=== PATIENT | female | born 1960 | race Caucasian/White ===

== ENCOUNTER → 2020-01-18 14:29 | Outpatient (BNVA) | payer MEDICARE, BC, SELFPAY | PROVIDERS: Family Provider Nurse Practitioner Family; PCP Registered Nurse; Visit Provider Family Medicine | DX: R05 Cough (principal); J01.00 Acute maxillary sinusitis, unspecified | CPT/HCPCS: 87081; 87880 ==

== ENCOUNTER → 2020-03-11 11:27 | Outpatient (BNVA) | payer BC, SELFPAY | PROVIDERS: Family Provider Nurse Practitioner Family; PCP Registered Nurse; Visit Provider Registered Nurse | DX: Z12.31 Encounter for screening mammogram for malignant neoplasm of breast (principal); E11.9 Type 2 diabetes mellitus without complications; E78.5 Hyperlipidemia, unspecified; E55.9 Vitamin D deficiency, unspecified; R53.83 Other fatigue; E53.8 Deficiency of other specified B group vitamins | CPT/HCPCS: 80053; 80061; 82306; 82607; 83036; 84443; 85025 ==

== ENCOUNTER 2020-04-19 12:21 | Outpatient (CLI) | payer MEDICARE, SELFPAY ==
--- NOTE | 2020-04-19 12:45 | USCV_ITS ---
Nimisha Dipti Age: 59 Gender: F : 1960 Exam Date: 04/19/2020 12:39 Ordering Phys: Ania Simpson MD ([email or web address]) Technologist: Michelle Corral Exam Location: [facility] [place] Indication: shortness of breath BP: / HR: 74 Rhythm: Sinus Technical Quality: Adequate MEASUREMENTS (Male / Female) Normal Values 2D ECHO LV Diastolic Diameter PLAX 3.0 cm 4.2 - 5.9 / 3.9 - 5.3 cm LV Systolic Diameter PLAX 1.9 cm LV Chamber Size 3.2 cm IVS Diastolic Thickness 1.4 cm 0.6 - 1.0 / 0.6 - 0.9 cm IVS Systolic Thickness 1.4 cm LVPW Diastolic Thickness 1.4 cm 0.6 - 1.0 / 0.6 - 0.9 cm LVPW Systolic Thickness 1.8 cm RV Chamber Size 3.2 cm LVOT Diameter 2.0 cm LV Ejection Fraction 2D Teich 69.7 % LV Ejection Fraction MOD 2C 42.0 % LV Ejection Fraction 2C AL 42.4 % LA Diameter 3.8 cm LA Width 3.7 cm LA Height 4.5 cm RA Width 3.1 cm RA Height 3.9 cm Aorta at Sinotubular Diameter 2.1 cm M-MODE LV Diastolic Diameter MM 4.6 cm 4.2 - 5.9 / 3.9 - 5.3 cm LV Systolic Diameter MM 2.6 cm LV Ejection Fraction MM Teich 74.6 % IVS Diastolic Thickness MM 1.0 cm 0.6 - 1.0 / 0.6 - 0.9 cm IVS Systolic Thickness MM 1.4 cm LVPW Diastolic Thickness MM 1.0 cm 0.6 - 1.0 / 0.6 - 0.9 cm LVPW Systolic Thickness MM 1.7 cm RV Diastolic Diameter MM 2.2 cm Aortic Annulus Diameter 3.2 cm LA Ao Ratio MM 1.2 MV E Point Septal Separation 0.5 cm DOPPLER AV Peak Velocity 102.0 cm/s LVOT Peak Velocity 58.0 cm/s AV Area Cont Eq vti 2.1 cm squared AV Area Cont Eq pk 1.9 cm squared MV Area PHT 4.2 cm squared Mitral E to A Ratio 1.1 MV E' Velocity 10.0 cm/s Mitral E to MV E' Ratio 8.8 Mitral E to LV E' Lateral Ratio 7.5 Mitral E to LV E' Septal Ratio 10.5 TR Peak Velocity 181.4 cm/s TR Peak Gradient 13.2 mmHg TR Mean Velocity 130.9 cm/s TR Mean Gradient 7.6 mmHg TR Velocity Time Integral 39.8 cm TV Peak E Velocity 63.0 cm/s Right Atrial Pressure 3.0 mmHg Pulmonary Artery Systolic Pressu 16.2 mmHg PV Peak Velocity 67.0 cm/s RV Acceleration Time 0.3 s RV Ejection Time 0.4 s RV AcT/ET 0.7 FINDINGS Left Ventricle Possibly normal LV size and ejection fraction. The basal inferior wall segment appears to be hypokinetic segmental wall motion analysis difficult because of poor ultrasonic window. Right Ventricle Possibly of normal size and ejection fraction Right Atrium Possibly of normal size Left Atrium Possibly of normal size Mitral Valve Minimally thickened Aortic Valve Could not visualized well Tricuspid Valve Could not be visualized well Pulmonic Valve Pulmonic valve not well visualized. Pericardium No pericardial effusion. Aorta Normal aortic annulus size. CONCLUSIONS Possibly normal LV size ejection fraction of around 55%. Motion normality as mentioned above. Segmental wall motion analysis difficult because of the poor ultrasonic window Mitral valve appears to be minimally thickened No pericardial effusion Possibly normal chamber sizes Technically difficult study. Dr Ania Simpson MD [facility] (Electronically Signed) Final Date: 19 April 2020 15:18 S
== END 2020-04-19 12:22 | disposition home or self-care (01) ==
LOC: US 12:27
PROVIDERS: PCP Registered Nurse; Visit Provider Registered Nurse
DX: R06.02 Shortness of breath (principal)
CPT/HCPCS: 93306

== ENCOUNTER 2020-05-08 12:05 | Emergency (ER) | payer MEDICARE, SELFPAY ==
[2020-05-08 12:13] VITALS: BMI 44.9
[2020-05-08 12:18] VITALS: BP 156/94; PULSE 89; RESP 16; TEMP 36.7; O2SAT 94
--- NOTE | 2020-05-08 12:26 | ED_ITS ---
HPI - General Adult General: Chief complaint: General Medical Stated complaint: covid s/s Time Seen by Provider: 05/08/20 12:14 Source: patient Mode of arrival: ambulatory Limitations: no limitations History of Present Illness: HPI narrative: Dipti is a nice 59-year-old female who comes in complaining of sore throat, cough and congestion. She has had her symptoms for approximately 1 week. She has had 2 exposures to the COVID-19 virus. Patient denies any chest pain, generalized weakness, abdominal pain or back pain. She is continued complaint of cough, sore throat and occasional shortness of breath. Associated symptoms: Reports dyspnea; Deny chest pain, headache(s), nausea, rash, palpitations, syncope or vomiting Review of Systems Const: Denies: fever(s) Eyes: Denies: change in vision ENMT: Reports: throat pain Card: Denies: chest pain, palpitations, syncope, pre-syncope or dyspnea on exertion Resp: Reports: dyspnea and non-productive cough; Denies: productive cough GI: Denies: abdominal pain, nausea, vomiting or diarrhea : Denies: flank pain, dysuria, urinary frequency or urinary urgency Musc: Denies: neck pain, back pain or extremity pain Skin/Breast: Denies: rash or pruritus Neuro: Denies: headache(s), numbness in extremities, weakness in extremities or dizziness Sung/Lymph: Denies: easy bruising or easy bleeding All/Imm: Denies: urticaria PFSH ED PFSH: Medical History Chest pain Diabetes Fibromyalgia Social History Smoking and tobacco status: never smoked Alcohol intake: never Adopted: No Caregiver/support person: No Lives independently: Yes Marital status: / Current occupational status: employed Current gender identity: Female Physical Exam Const: COMMON NORMALS: no acute distress, patient oriented x3, no limitations, healthy appearing and well nourished GENERAL APPEARANCE: cooperative, well kempt and well developed HENMT: COMMON NORMALS: normocephalic, atraumatic, external ears normal, EAC's normal and Normal external nose present HEAD & SCALP: normal to inspection, normocephalic and atraumatic FACE & SINUS: normal facial exam and face symmetric NOSE: Normal external nose present and Normal nares present EXTERNAL EAR: Yes external ears normal EXTERNAL AUDITORY CANAL: EAC's normal MOUTH: Normal oral and palatal mucosa present, lip normal and tongue normal Eye: COMMON NORMALS: Equal, round and reactive pupils present and conjunctivae normal GENERAL EYE: appearance normal, both eyes and all related structures ALIGNMENT: Yes alignment normal PERIORBITAL: periorbital findings normal EYELID: eyelids normal CONJUNCTIVA: Yes conjunctivae normal SCLERA: sclerae normal PUPIL: Yes Equal, round and reactive pupils present Neck/C-Spine: COMMON NORMALS: full ROM, no lymphadenopathy, supple, no meningeal signs and no JVD GENERAL: Yes normal visual inspection and Yes trac hea midline Chest: COMMONS NORMALS: normal inspection of the chest and normal palpation of entire chest wall Resp: COMMON NORMALS: normal respiratory effort, No retractions and No use of accessory muscles EFFORT & INSPECTION: Yes able to speak in complete sentences and Yes symmetric chest movement AUSCULTATION: no crackles, no rales, no rhonchi and no wheezes Cardio: COMMON NORMALS: no JVD, regular rate, regular rhythm, S1 normal heart sound present and S2 normal heart sound present RATE: regular rate RHYTHM: regular rhythm HEART SOUNDS: S1 normal heart sound present, S2 normal heart sound present, no click, no gallops, no murmurs, no rubs and abnormal split S2 GI: COMMON NORMALS: Soft to palpation and No hepatosplenomegaly present PALPATION: Yes Soft to palpation, No Tenderness to palpation present (GI), No Guarding due to palpation present (GI), No Rigid due to palpation, Yes No hepatosplenomegaly present, No Hernia present, No Palpable mass present and No Pulsatile mass present : COMMON NORMALS: Yes no CVA tenderness BLADDER/KIDNEY EXAM: Yes no CVA tenderness EXTERNAL FEMALE EXAM: No Hernia present Back/Pelvis: COMMON NORMALS: no CVA tenderness, thoracic and lumbar spine normal to inspection, no thoracic nor lumbar tenderness and thoraco-lumbar ROM normal Extremity: COMMON NORMALS: normal to inspection, full ROM, capillary refill normal, no joint enlargement, no clubbing, cyanosis or edema and no calf tenderness Neuro: COMMON NORMALS: patient oriented x3, CN's II-XII intact bilaterally, moves all extremities, no focal motor deficits and no sensory deficits noted MENINGEAL SIGNS: Yes no meningeal signs SPEECH: speech normal Psych: COMMON NORMALS: mental status grossly normal, Normal thought process present, cooperative, normal affect, speech normal and activity/motor behavior normal APPEARANCE: Yes well kempt SPEECH: Yes normal speech THOUGHT PROCESS: Normal thought process present Skin: COMMON NORMALS: no rashes or lesions noted, turgor normal, no jaundice, no petechiae and no mottling GENERAL SKIN EXAM: no rashes or lesions noted and turgor normal Course Vital Signs: Vital signs: Vital Signs Temperature 98.0 F 05/08/20 12:18 Pulse Rate 72 05/08/20 15:47 Respiratory Rate 18 05/08/20 15:47 Blood Pressure 133/74 05/08/20 15:47 Pulse Oximetry 96 05/08/20 15:47 MDM - General Adult MDM Narrative: Medical decision making narrative: Patient's chest x-ray is clear. A COVID-19 test has been sent. The patient agrees to return if she is worse and at this time she wants to go home with something for bronchitis. I will start her on Tessalon Perles and Augmentin. She will return if there is any problems but at this time she is feeling better and would like to be discharged. She agrees to self quarantine herself for the COVID-19 exposure until we call her with her results. Lab Data: Labs: Lab Results 05/08/20 05/08/20 05/08/20 Range/Units 13:20 13:20 14:45 WBC 9.8 (4.0-10.0) 10^3/ uL RBC 5.20 (4.1-5.3) 10^6/u L Hgb 15.8 H (11.5-15.3) g/dL Hct 48.8 H (37.0-47.0) % MCV 93.8 (81-99) fL MCH 30.4 (28.0-34.0) pg MCHC 32.4 (30.0-36.0) g/dL RDW 13.7 (12.1-15.1) % Plt Count 324 (130-400) 10^3/c mm MPV 9.2 (7.4-10.4) fL Neut % (Auto) 60.4 % Lymph % (Auto) 26.6 % [place] % (Auto) 9.8 % Eos % (Auto) 2.2 % Baso % (Auto) 0.6 % Neut # (Auto) 5.9 (1.8-7.7) 10^3/u L Lymph # (Auto) 2.6 (0.8-4.8) 10^3/u L [place] # (Auto) 1.0 H (0.2-0.9) 10^3/u L Eos # (Auto) 0.2 (0.0-0.8) 10^3/u L Baso # (Auto) 0.1 (0.0-0.1) 10^3/u L Nucleated RBC % (a uto) 0 % Nucleated RBCs # 0.0 /100WBC Sodium 139 (136-145) mmol/L Potassium 4.1 (3.5-5.1) mmol/L Chloride 102 (98-107) mmol/L Carbon Dioxide 29 (22-29) mmol/L Anion Gap 12.1 (5-19) BUN 11 (6-20) mg/dL Creatinine 0.7 (0.5-0.9) mg/dL GFR Calculation 86.2 L (90-130) mL/min Glucose 108 (65-115) mg/dL Calculated Osmolal ity 285 (285-295) mOsm/k g Calcium 10.0 (8.5-10.5) mg/dL Total Bilirubin 0.3 (0.15-1.2) mg/dL AST 24 (0-32) U/L ALT 23 (0-33) U/L Alkaline Phosphata se 106 H (35-105) IU/L Total Protein 7.4 (6.6-8.7) g/dL Albumin 4.1 (3.5-5.2) g/dL Globulin 3.3 (1.3-4.6) g/dL Urine Color Yellow (Yellow) Urine Appearance Sl hazy (CLEAR) Urine pH 7 (5-7) Ur Specific Gravit y 1.020 (1.005-1.030) Urine Protein Neg (Negative) Urine Glucose (UA) Norm (Normal) Urine Ketones Negative (Negative) Urine Blood Neg (Negative) Urine Nitrate Negative (Negative) Urine Bilirubin Neg (NEGATIVE) Urine Urobilinogen Norm (Negative) mg/dL Ur Leukocyte Kelsie ase Negative (Negative) Urine RBC None (0-2) /hpf Urine WBC 0-4 H (0-5) /hpf Ur Squamous Epith Cells 10-15 H (0-5) Amorphous Sediment 2+ Urine Bacteria Trace (NONE) Urine Mucus 2+ Imaging Data^: CXR: My impression: No acute cardiopulmonary findings, unchanged from previous. Discharge Plan Discharge Patient Disposition: Home, Self-Care Clinical Impression: Bronchitis Condition: Stable Prescriptions: New Augmentin 875-125 mg tablet 1 tab PO BID 10 Days Qty: 20 RF: 0 Tessalon Perles 100 mg capsule 200 mg PO TID PRN (Reason: cough) Qty: 60 RF: 0 No Action ibuprofen 200 mg tablet 600 mg PO BID PRNRF: 0 fluticasone propionate 50 mcg/actuation spray,suspension 2 spray INTRANASAL DAILY PRNRF: 0 cholecalciferol (vitamin D3) 1,250 mcg (50,000 unit) tablet 1,250 mcg PO .once a week 90 Days Qty: 12 RF: 1 metformin 500 mg tablet 500 mg PO BID 90 Days Qty: 180 RF: 0 Discharge Orders: Discharge Order (Routine); Ordered 05/08/20 Ordered By: Sofía Jordan Referrals: Lew Camilo FNP [Primary Care Provider] - 1-3 days Discharge Diet: Advance as tolerated Discharge Activity: Limit activity as instructed Patient Instructions: Acute Bronchitis (ED) Activity Restrictions/Additional Instructions: Please return to the ER immediately for any of the signs or symptoms listed on your discharge instruction sheets, worsening/changing of your symptoms, you are not getting better as quickly as expected, or for ANY other cause or concerns. Keep yourself at home and quarantined away from everyone else into you were called with your COVID-19 test results. If your breathing worsens, your sore throat worsens, or you have any other concerns please return to the ER immediately for recheck. Be certain to follow-up with your doctor this week for recheck. Discharge Date/Time: 05/08/20 15:58 Coding Level of Care Code ED Linux Developer for Callie Fwd Exam Comprehensive
--- NOTE | 2020-05-08 12:36 | XRR_ITS ---
PROCEDURE INFORMATION: Exam: XR Chest, 1 View Exam date and time: 05/08/2020 12:38 PM Age: 59 years old Clinical indication: Cough; Patient HX: Possible covid TECHNIQUE: Imaging protocol: XR of the chest Views: 1 view. COMPARISON: No relevant prior studies available. FINDINGS: Lungs: Nonspecific right and left cardiophrenic angle densities more pronounced on the right. Possible fat pads. Some right middle lobe atelectasis not excluded. Pleural space: Unremarkable. No pleural effusion. No pneumothorax. Heart/Mediastinum: Unremarkable. No cardiomegaly. Bones/joints: Unremarkable. XR/XR chest 1V portable [id number] IMPRESSION: Nonspecific right and left cardiophrenic angle densities more pronounced on the right. Possible fat pads. Some right middle lobe atelectasis not excluded.
[2020-05-08 13:28] LABS: Basophils # 0.1 10^3/uL (0.0-0.1); Basophils % 0.6 %; Eosinophils # 0.2 10^3/uL (0.0-0.8); Eosinophils % 2.2 %; Hematocrit 48.8 % (37.0-47.0); Hemoglobin 15.8 g/dL (11.5-15.3); Lymphocytes # 2.6 10^3/uL (0.8-4.8); Lymphocytes % 26.6 %; Mean Corpuscular HGB Conc 32.4 g/dL (30.0-36.0); Mean Corpuscular Hemoglobin 30.4 pg (28.0-34.0); Mean Corpuscular Volume 93.8 fL (81-99); Mean Platelet Volume 9.2 fL (7.4-10.4); Monocytes % 9.8 %; Neutrophils # 5.9 10^3/uL (1.8-7.7); Neutrophils % 60.4 %; Nucleated Red Blood Cells % 0 %; Platelet Count 324 10^3/cmm (130-400); Red Cell Distribution Width 13.7 % (12.1-15.1); White Blood Count 9.8 10^3/uL (4.0-10.0)
[2020-05-08 13:52] LABS: Alanine Aminotransferase 23 U/L (0-33); Albumin Level 4.1 g/dL (3.5-5.2); Alkaline Phosphatase 106 IU/L (35-105); Anion Gap 12.1 (5-19); Aspartate Amino Transferase 24 U/L (0-32); Blood Urea Nitrogen 11 mg/dL (6-20); Carbon Dioxide 29 mmol/L (22-29); Chloride 102 mmol/L (98-107); Globulin 3.3 g/dL (1.3-4.6); Glomerular Filtration Rate 86.2 mL/min (90-130); Glucose 108 mg/dL (65-115); Osmolality Calculated 285 mOsm/kg (285-295); Potassium 4.1 mmol/L (3.5-5.1); Sodium 139 mmol/L (136-145); Total Bilirubin 0.3 mg/dL (0.15-1.2); Total Protein 7.4 g/dL (6.6-8.7)
[2020-05-08] MEDS: sodium chloride 0.9% 1,000 ML 999 ML IV (14:00)
[2020-05-08] MEDS: dexamethasone 10 mg/mL INJ IVP (14:28)
[2020-05-08] MEDS: amoxicillin-clav 875-125 mg Tablet 1 TAB PO (14:29)
[2020-05-08] MEDS: benzonatate 100 mg Capsule 200 MG PO (14:29)
[2020-05-08 15:47] VITALS: BP 133/74; PULSE 72; RESP 18; O2SAT 96
[2020-05-08 15:48] LABS: Bilirubin Urine Neg (NEGATIVE); Blood Urine Neg (Negative); Glucose Urine UA Norm (Normal); Ketones Urine Negative (Negative); Leukocyte Esterase Urine Negative (Negative); Nitrate Urine Negative (Negative); Protein Urine Neg (Negative); Urine Appearance SL Hazy (CLEAR); Urine Color Yellow (Yellow); Urobilinogen Urine Norm (Negative); pH Urine 7 (5-7)
[2020-05-08 16:06] LABS: Add Urine Culture? No; Amorphous Sediment Urine 2+; Bacteria Urine TRACE; Mucus Urine 2+; WBC Urine 0-4 /hpf (0-5)
[2020-05-10 23:55] LABS: Quest SARS-CoV-2 RNA NOT DETECTED (NOT DETECTED)
== END 2020-05-08 15:58 | disposition home or self-care (01) ==
PROVIDERS: Emergency Provider Emergency Medicine; PCP Registered Nurse
DX: J40 Bronchitis, not specified as acute or chronic (principal); E11.9 Type 2 diabetes mellitus without complications
CPT/HCPCS: 12345; 36415; 71045; 80053; 81001; 85025; 87040; 87635; 96361; 96374; 96375; 99282; 99284; J1100; J7030

== ENCOUNTER → 2020-05-21 10:39 | Outpatient (BNVA) | payer MEDICARE, SELFPAY | PROVIDERS: PCP Registered Nurse; Visit Provider Nurse Practitioner Family | DX: N94.9 Unspecified condition associated with female genital organs and menstrual cycle (principal); N76.0 Acute vaginitis; B96.89 Other specified bacterial agents as the cause of diseases classified elsewhere | CPT/HCPCS: 81000 ==

== ENCOUNTER → 2020-08-27 12:04 | Outpatient (BNVA) | payer MEDICARE, SELFPAY | PROVIDERS: PCP Registered Nurse; Visit Provider Registered Nurse | DX: Z11.59 Encounter for screening for other viral diseases (principal); Z20.828 Contact with and (suspected) exposure to other viral communicable diseases; R05 Cough | CPT/HCPCS: 87635 ==

== ENCOUNTER 2020-11-03 12:44 | Outpatient (CLI) | payer MEDICARE, SELFPAY ==
--- NOTE | 2020-11-03 12:55 | XR_ITS ---
WS: [id number] Exam: XR lumbar spine 2-3V* [id number] Date/Time of Exam: 11/03/2020 12:55 PM Reason For Exam: M54.9 - Dorsalgia, unspecified Lateral views of the lumbar spine show no obvious fracture or dislocation. Disc spaces are preserved. Facet DJD noted at all levels. Abdominal calcification noted which apparently represents a staghorn calculus in the left kidney which has been previously described. XR/XR lumbar spine 2-3V* [id number] IMPRESSION: 1. Facet DJD at all levels. No fracture or malalignment identified from the lat eral view. 2. Staghorn renal calculus.
--- NOTE | 2020-11-03 12:55 | XR_ITS ---
WS: [id number] Exam: XR hip RT 2-3V wo/w pel* [id number] Date/Time of Exam: 11/03/2020 12:55 PM Reason For Exam: M25.551 - Pain in right hip Comparison 05/09/2011. Moderate degenerative narrowing of the joint compartment. No fracture or dislocation. Normal soft tis sues. XR/XR hip RT 2-3V wo/w pel* [id number] IMPRESSION: 1. Moderately advanced DJD which has been progressive since previous exam. 2. No fracture noted.
== END 2020-11-03 12:45 | disposition home or self-care (01) ==
PROVIDERS: PCP Nurse Practitioner Family; Visit Provider Nurse Practitioner Family
DX: M47.816 Spondylosis without myelopathy or radiculopathy, lumbar region (principal); N20.0 Calculus of kidney; M16.11 Unilateral primary osteoarthritis, right hip
CPT/HCPCS: 72100; 73502

== ENCOUNTER → 2020-12-02 08:49 | Outpatient (BNVA) | payer MEDICARE, SELFPAY | PROVIDERS: PCP Nurse Practitioner Family; Visit Provider Nurse Practitioner Family | DX: S39.012A Strain of muscle, fascia and tendon of lower back, initial encounter (principal); M62.830 Muscle spasm of back; X58.XXXA Exposure to other specified factors, initial encounter | CPT/HCPCS: 81000 ==

== ENCOUNTER 2021-04-07 15:11 | Outpatient (CLI) | payer MEDICARE, SELFPAY ==
--- NOTE | 2021-04-07 15:26 | XR_ITS ---
WS: [id number] Left knee, 3 views, 04/07/2021 Clinical Data: M25.562 - Pain in left knee Comparison: None. Findings: No fractures or dislocations are seen. There is minimal narrowing of both the medial and lateral join t compartments. There is a small spur of the posterior superior patella. The soft tissues are unrema rkable. XR/XR knee LT 3V* [id number] Impression: Minimal medial and lateral joint compartment narrowing. Kellgren-Bonifacio Classification: grade 1 (doubtful): doubtful joint space narr owing and possible osteophytic lipping
--- NOTE | 2021-04-07 15:26 | XR_ITS ---
WS: [id number] Left leg including the tibia and fibula, AP and lateral views, 04/07/2021 Clinical Data: M79.605 - Pain in left leg Comparison: None. Findings: No fractures or dislocations are seen. The tibia and fibula are intact. The soft tissues are normal. XR/XR tibia fibula LT 2V [id number] Impression: Negative left leg.
== END 2021-04-07 15:12 | disposition home or self-care (01) ==
LOC: RAD 15:22
PROVIDERS: PCP Nurse Practitioner Family; Visit Provider Nurse Practitioner Family
DX: M25.562 Pain in left knee (principal); M79.605 Pain in left leg
CPT/HCPCS: 73562; 73590

== ENCOUNTER → 2021-04-14 10:33 | Outpatient (BNVA) | payer MEDICARE, SELFPAY | PROVIDERS: PCP Nurse Practitioner Family; Visit Provider Nurse Practitioner Family | DX: L91.8 Other hypertrophic disorders of the skin (principal) | CPT/HCPCS: 88304 ==

== ENCOUNTER 2021-05-03 17:06 | Outpatient (CLI) | payer MEDICARE, SELFPAY ==
--- NOTE | 2021-05-03 17:30 | MR_ITS ---
WS: [id number] MRI LEFT KNEE NONCONTRAST TECHNIQUE: Axial PD, coronal PD fat sat, coronal PD, sagittal PD, and sagittal PD fat-sat images obta ined. CLINICAL INFORMATION: M25.562 - Pain in left knee COMPARISON: None. FINDINGS: Distal quadriceps and patella tendons are intact. Normal ACL and PCL. Hypertrophic patella. No signif icant joint effusion. Small amount prepatellar and infrapatellar soft tissue edema. Moderate to advanced chronic thinning of the medial and lateral meniscus. No acute appearing meniscal tears. Moderate joint space narrowing with moderate to advanced chondromalacia involving the medial and lateral joint compartments. Hypertrophic changes along the joint line.Small amount of subchondral edema involving the medial femoral condyle. Moderate chondromalacia patella. No subchondral edema. Medial and lateral patellar retinacula appear intact. Normal popliteal fossa. Medial and lateral collateral ligaments are intact. MR/MR knee LT wo con* [id number] IMPRESSION: 1. Normal anterior and posterior cruciate ligaments. 2. No acute patellar fractures. Small amount prepatellar and infrapatellar sof t tissue edema. No significant joint effusion. 3. No acute appearing meniscal tears. Chronic thinning of the medial and later al meniscus with moderate to advanced chondromalacia. 4. Medial and lateral collateral ligaments are intact. 5. Small amount of subchondral edema involving the medial femoral condyle. 6. Moderate chondromalacia patella. No subchondral edema. Outbridge grading: grade III: partial-thickness cartilage loss with focal ulcer ation
== END 2021-05-03 17:07 | disposition home or self-care (01) ==
PROVIDERS: PCP Nurse Practitioner Family; Visit Provider Nurse Practitioner Family
DX: M25.562 Pain in left knee (principal); M22.42 Chondromalacia patellae, left knee; R60.0 Localized edema
CPT/HCPCS: 73721

== ENCOUNTER → 2021-07-15 10:16 | Outpatient (BNVA) | payer MEDICARE, SELFPAY | PROVIDERS: PCP Nurse Practitioner Family; Visit Provider Nurse Practitioner Family | DX: Z20.822 Contact with and (suspected) exposure to COVID-19 (principal); R05 Cough | CPT/HCPCS: 87635 ==

== ENCOUNTER 2021-07-19 13:30 | Outpatient (CLI) | payer MEDICARE, SELFPAY ==
[2021-07-19 14:03] VITALS: BP 129/86; PULSE 94; RESP 20; TEMP 36.5; O2SAT 94; BMI 44.9
[2021-07-19 14:34] VITALS: BP 128/80; PULSE 77; RESP 18; O2SAT 97
[2021-07-19 15:21] VITALS: BP 127/70; PULSE 71; RESP 16; TEMP 36.5; O2SAT 98
== END 2021-07-19 15:23 | disposition home or self-care (01) ==
LOC: OPS 13:32
PROVIDERS: PCP Nurse Practitioner Family; Visit Provider Nurse Practitioner Family
DX: U07.1 COVID-19 (principal)
CPT/HCPCS: 96365

== ENCOUNTER → 2021-09-13 09:48 | Outpatient (BNVA) | payer MEDICARE, SELFPAY | PROVIDERS: PCP Nurse Practitioner Family; Visit Provider Nurse Practitioner Family | DX: E55.9 Vitamin D deficiency, unspecified (principal) | CPT/HCPCS: 82306 ==

== ENCOUNTER → 2021-12-22 14:38 | Outpatient (BNVA) | payer MEDICARE, SELFPAY | PROVIDERS: PCP Nurse Practitioner Family; Visit Provider Nurse Practitioner Family | DX: L03.90 Cellulitis, unspecified (principal); L02.214 Cutaneous abscess of groin | CPT/HCPCS: 87070; 87077; 87184 ==

== ENCOUNTER 2022-12-19 11:05 | Inpatient (IN) | payer MEDICARE, SELFPAY ==
[2022-12-19] VITALS (54 sets, daily range): BP systolic 113–152; BP diastolic 68–92; PULSE 72–102; RESP 12–18; TEMP 36.4–36.9; O2SAT 86–99; BMI 35.6
--- NOTE | 2022-12-19 11:23 | ED_ITS ---
HPI - Female Genitourinary General: Chief complaint: Urogenital-Female Stated complaint: possible urogenital Time Seen by Provider: 12/19/22 11:23 History of Present Illness: This is a duplicate chart. I did not see this patient. Patient was seen by another ER physician PFS ED PFSH: Medical History Chest pain Diabetes Fibromyalgia Renal artery pseudoaneurysm Staghorn renal calculus Surgical History H/O: hysterectomy History of kidney surgery Hx of cholecystectomy Family History Other Diabetes Social History Smoking and tobacco status: never smoked Alcohol intake: never Adopted: No Caregiver/support person: No Lives independently: Yes Marital status: / Current occupational status: employed Current gender identity: Female Course Vital Signs: Vital signs: Vital Signs Temperature 99.1 F 12/21/22 20:00 Pulse Rate 82 12/21/22 20:00 Respiratory Rate 18 12/21/22 20:00 Blood Pressure 135/77 12/21/22 20:00 Pulse Oximetry 94 12/21/22 20:00 Oxygen Delivery Me thod 12/21/22 20:00 Oxygen Flow Rate 2 12/19/22 21:23 MDM - Female Medical Decision Making This is a duplicate chart. I did not see this patient. Patient was seen by another ER physician Lab Data 12/21/22 04:50 12/21/22 04:50 Radiology Impressions Chest X-Ray 12/19/22 12:12 IMPRESSION: Evidence of active cardiopulmonary disease. Abdomen/Pelvis CT 12/19/22 13:08 IMPRESSION: 1. Moderate amount of free intraperitoneal air. 2. Segment of acute sigmoid diverticulitis without abscess. There are small adjacent foci of free air. This is probably the site of the perforation. 3. There is additional free air closely associated with the antrum of the stomach. No wall thickening. Suspect this is incidental and the free air is related to the sigmoid perforation. 4. Prior cholecystectomy. Notified Ramónshannon Key MD at 12/19/2022 2:24 PM. Laboratory Results WBC 16.2 10^3/uL (4.0-10.0) H 12/19/22 11:54 RBC 5.32 10^6/uL (4.1-5.3) H 12/19/22 11:54 Hgb 16.3 g/dL (11.5-15.3) H 12/19/22 11:54 Hct 49.2 % (37.0-47.0) H 12/19/22 11:54 MCV 92.5 fl (81-99) 12/19/22 11:54 MCH 30.6 pg (28.0-34.0) 12/19/22 11:54 MCHC 33.1 g/dL (30.0-36.0) 12/19/22 11:54 RDW 13.7 % (12.1-15.1) 12/19/22 11:54 Plt Count 300 10^3/cmm (130-400) 12/19/22 11:54 MPV 9.7 fL (7.4-10.4) 12/19/22 11:54 Neut % (Auto) 81.7 % 12/19/22 11:54 Lymph % (Auto) 12.6 % 12/19/22 11:54 [place] % (Auto) 5.1 % 12/19/22 11:54 Eos % (Auto) 0.2 % 12/19/22 11:54 Baso % (Auto) 0.2 % 12/19/22 11:54 Neut # (Auto) 13.17 10^3/uL (1.8-7.7) H 12/19/22 11:54 Lymph # (Auto) 2.0 10^3/uL (0.8-4.8) 12/19/22 11:54 [place] # (Auto) 0.8 10^3/uL (0.2-0.9) 12/19/22 11:54 Eos # (Auto) 0.0 10^3/uL (0.0-0.8) 12/19/22 11:54 Baso # (Auto) 0.0 10^3/uL (0.0-0.1) 12/19/22 11:54 Nucleated RBC % (auto) 0 % 12/19/22 11:54 Nucleated RBCs # 0.0 /100WBC 12/19/22 11:54 D-Dimer 0.51 ug/mIFEU (0-0.59) 12/19/22 11:54 Specimen Type Arterial 12/19/22 14:14 Sample Site Radial, right 12/19/22 14:14 ABG pH 7.50 (7.35-7.45) H 12/19/22 14:14 ABG pCO2 29.7 mmHg (35-45) L 12/19/22 14:14 ABG pO2 82.8 mmHg (80.0-100.0) 12/19/22 14:14 ABG HCO3 23.3 mmol/L (22-26) 12/19/22 14:14 ABG O2 Saturation 97.4 12/19/22 14:14 ABG Base Excess 1.3 mmol/L (-2.0-2.0) 12/19/22 14:14 Jonathan Test Pos 12/19/22 14:14 A-a O2 Gradient 3.5 mmHg (5-10) L 12/19/22 14:14 Hematocrit 49.8 % (37-47) H 12/19/22 14:14 Hgb O2 Saturation 96.3 % (95-100) 12/19/22 14:14 Carboxyhemoglobin 0.8 %THgb (0.4-20.1) 12/19/22 14:14 Methemoglobin 0.4 % (0.4-1.5) 12/19/22 14:14 Total Hemoglobin 16.3 g/dL (12-16) H 12/19/22 14:14 Sodium 137.0 mmol/L (131-143) 12/19/22 14:14 Potassium 3.9 mmol/L (3.5-5.0) 12/19/22 14:14 Glucose 141.0 mg/dL (70-115) H 12/19/22 14:14 Ionized Calcium 1.2 mmol/L (1.1-1.4) 12/19/22 14:14 O2 Delivery Device Room air 12/19/22 14:14 FiO2 21.0 % 12/19/22 14:14 Vibration Technician ID glc 12/19/22 14:14 Sodium 135 mmol/L (136-145) L 12/19/22 11:54 Potassium 4.1 mmol/L (3.5-5.1) 12/19/22 11:54 Chloride 99 mmol/L (98-107) 12/19/22 11:54 Carbon Dioxide 23 mmol/L (22-29) 12/19/22 11:54 Anion Gap 17.1 (5-19) 12/19/22 11:54 BUN 12 mg/dL (8-23) 12/19/22 11:54 Creatinine 0.6 mg/dL (0.5-0.9) 12/19/22 11:54 GFR Calculation 102.0 mL/min (90-130) 12/19/22 11:54 Glucose 158 mg/dL (65-115) H 12/19/22 11:54 Calculated Osmolality 283 mOsm/kg (285-295) L 12/19/22 11:54 Lactic Acid 1.1 mmol/L (0.5-2.2) 12/19/22 01:18 Calcium 9.5 mg/dL (8.5-10.5) 12/19/22 11:54 Urine Color Yellow (Yellow) 12/19/22 11:08 Urine Appearance Clear (CLEAR) 12/19/22 11:08 Urine pH 7 (5-7) 12/19/22 11:08 Ur Specific [place] 1.010 (1.005-1.030) 12/19/22 11:08 Urine Protein Neg (Negative) 12/19/22 11:08 Urine Glucose (UA) Norm (Normal) 12/19/22 11:08 Urine Ketones 1+ (Negative) H 12/19/22 11:08 Urine Blood Neg (Negative) 12/19/22 11:08 Urine Nitrate Negative (Negative) 12/19/22 11:08 Urine Bilirubin Neg (Negative) 12/19/22 11:08 Urine Urobilinogen Norm mg/dL (Negative) 12/19/22 11:08 Ur Leukocyte Esterase Negative (Negative) 12/19/22 11:08 Urine RBC 0-4 /hpf (0-2) H 12/19/22 11:08 Urine WBC 0-4 /hpf (0-5) H 12/19/22 11:08 Ur Squamous Epith Cells 0-4 /hpf (0-5) H 12/19/22 11:08 Amorphous Sediment Trace /hpf 12/19/22 11:08 Urine Bacteria 2+ /hpf (NONE) H 12/19/22 11:08 Urine Mucus Trace /hpf 12/19/22 11:08 Discharge Plan Discharge Patient Disposition: Admitted As Inpatient Admit Provider: Willian Berg Clinical Impression: Perforated sigmoid colon Diverticulitis large intestine Qualifiers: Diverticulitis bleeding: unspecified bleeding status Diverticulitis complic ation: with perforation Qualified Code(s): K57.20 - Diverticulitis of large intestine with perforation and abscess without bleeding Condition: Stable Coding Level of Care Code ED Plastics Fabrication Supervisor for Callie Moraes
--- NOTE | 2022-12-19 11:43 | W.ED.ABDPA2 ---
HPI - Abdominal Pain General: Chief Complaint: Urogenital-Female Stated Complaint: possible urogenital Time Seen by Provider: 12/19/22 11:23 Source: patient Mode of arrival: ambulatory Limitations: no limitations History of Present Illness: See nursing assessment. Patient states she has left lower quadrant abdominal pain that started yesterday after she waited a long time to urinate. She states she has some spasms in her suprapubic area and left lower quadrant. She denies any dysuria or hematuria. She denies any fever. She denies any nausea or vomiting. She denies any shortness of breath or chest pain. No cough. No flank pain. 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 She states that she had previous surgery to try and remove this but an artery was accidentally cut and surgery was discontinued before taking out the staghorn calculus. She reports that she has had a recent work-up for this calculus couple months ago and no change in that area. She denies any previous history of diverticulitis. Associated Symptoms: Denies chills, diarrhea, fever(s), nausea and vomiting Review of Systems Const: Denies: fever(s) or chills Eyes: Denies: change in vision ENMT: Denies: throat pain Card: Denies: chest pain or palpitations Resp: Denies: dyspnea or wheezing GI: Reports: abdominal pain; Denies: nausea, vomiting or diarrhea : Denies: flank pain Musc: Denies: neck pain or back pain Skin/Breast: Denies: rash or pruritus Neuro: Denies: headache(s) or numbness in extremities Psych: Denies: anxiety Sung/Lymph: Denies: enlarged lymph nodes PFSH ED PFSH: Medical History (Updated 12/19/22 @ 14:47 by Ramón Key MD) Chest pain Diabetes Fibromyalgia Social History Smoking and tobacco status: never smoked Alcohol intake: never Adopted: No Caregiver/support person: No Lives independently: Yes Marital status: / Current occupational status: employed Current gender identity: Female Supplemental PFSH Information: Previous left kidney surgery to remove staghorn calculus that was discontinued after complication from arterial injury. Physical Exam Const: COMMON NORMALS: no acute distress, patient oriented x3, no limitations and well nourished GENERAL APPEARANCE: cooperative HENMT: COMMON NORMALS: normocephalic and atraumatic HEAD & SCALP: normocephalic and atraumatic FACE & SINUS: normal facial exam Eye: COMMON NORMALS: EOMs intact bilaterally Neck/C-Spine: COMMON NORMALS: full ROM, no lymphadenopathy, supple and no meningeal signs GENERAL: Yes normal visual inspection Lymph: LYMPHATIC: no lymphadenopathy noted Chest: COMMONS NORMALS: normal inspection of the chest and normal palpation of entire chest wall CHEST: No Ecchymosis present and No rash Resp: COMMON NORMALS: normal respiratory effort, No retractions and clear to auscultation bilaterally EFFORT & INSPECTION: No respiratory distress AUSCULTATION: clear to auscultation bilaterally Cardio: COMMON NORMALS: regular rate, regular rhythm and Peripheral pulses 2+ throughout JUGULAR VENOUS DISTENTION: no JVD RATE: regular rate RHYTHM: regular rhythm PERIPHERAL PULSES: Peripheral pulses 2+ throughout GI: COMMON NORMALS: Normal to inspection, nondistended, normoactive bowel sounds present OTHER: Moderate left lower quadrant abdominal pain with palpation. No rash. Normoactive bowel sounds. No pulsatile masses or bruits. Morbid obesity. : COMMON NORMALS: Yes no CVA tenderness BLADDER/KIDNEY EXAM: Yes no CVA tenderness Back/Pelvis: COMMON NORMALS: no CVA tenderness Extremity: COMMON NORMALS: normal to inspection, full ROM and capillary refill normal Neuro: COMMON NORMALS: patient oriented x3, CN's II-XII intact bilaterally, no focal motor deficits and no sensory deficits noted MENINGEAL SIGNS: Yes no meningeal signs Psych: COMMON NORMALS: mental status grossly normal and Normal thought process present THOUGHT PROCESS: Normal thought process present Skin: COMMON NORMALS: no rashes or lesions noted and no wounds GENERAL SKIN EXAM: no rashes or lesions noted Course Vital Signs: Vital signs: Vital Signs Temperature 98.0 F 12/19/22 11:18 Pulse Rate 98 12/19/22 13:12 Respiratory Rate 18 12/19/22 13:12 Blood Pressure 152/83 12/19/22 14:00 Pulse Oximetry 95 12/19/22 14:00 Oxygen Delivery Me thod 12/19/22 13:12 MDM - Abdominal Pain Medical Decision Making Left lower quadrant abdominal pain. Possible kidney stone. Possible diverticulitis. No evidence of zoster. 1210: Patient denies any shortness of breath or cough. She denies any fever. However, patient with oxygen saturations of 88-90% on room air since triage when she had 97% oxygen saturation upon checking in. Patient still denies any shortness of breath. Will obtain chest x-ray and flu and COVID swabs to work-up oxygen saturation results. Patient continues to have oxygen saturation in the upper 80s. Will obtain blood gas. 1425: Radiologist called with report on CT of the abdomen pelvis stating patient has perforated sigmoid diverticulum due to sigmoid diverticulitis causing free air in the abdomen. 1428: Patient notified of CT results. She states she is allergic to sulfa and Cipro. Her oxygen saturation 96% on room air. 1440: Discussed with hospitalist Dr. Alvarado after discussing case with Dr. Berg general surgeon. Hospitalist will admit patient to [facility] floor. Lab Data 12/19/22 11:54 12/19/22 11:54 Labs/Radiology: Radiology Impressions Chest X-Ray 12/19/22 12:12 IMPRESSION: Evidence of active cardiopulmonary disease. Abdomen/Pelvis CT 12/19/22 13:08 IMPRESSION: 1. Moderate amount of free intraperitoneal air. 2. Segment of acute sigmoid diverticulitis without abscess. There are small adjacent foci of free air. This is probably the site of the perforation. 3. There is additional free air closely associated with the antrum of the stomach. No wall thickening. Suspect this is incidental and the free air is related to the sigmoid perforation. 4. Prior cholecystectomy. Notified Ramónshannon Key MD at 12/19/2022 2:24 PM. Laboratory Results WBC 16.2 10^3/uL (4.0-10.0) H 12/19/22 11:54 RBC 5.32 10^6/uL (4.1-5.3) H 12/19/22 11:54 Hgb 16.3 g/dL (11.5-15.3) H 12/19/22 11:54 Hct 49.2 % (37.0-47.0) H 12/19/22 11:54 MCV 92.5 fl (81-99) 12/19/22 11:54 MCH 30.6 pg (28.0-34.0) 12/19/22 11:54 MCHC 33.1 g/dL (30.0-36.0) 12/19/22 11:54 RDW 13.7 % (12.1-15.1) 12/19/22 11:54 Plt Count 300 10^3/cmm (130-400) 12/19/22 11:54 MPV 9.7 fL (7.4-10.4) 12/19/22 11:54 Neut % (Auto) 81.7 % 12/19/22 11:54 Lymph % (Auto) 12.6 % 12/19/22 11:54 [place] % (Auto) 5.1 % 12/19/22 11:54 Eos % (Auto) 0.2 % 12/19/22 11:54 Baso % (Auto) 0.2 % 12/19/22 11:54 Neut # (Auto) 13.17 10^3/uL (1.8-7.7) H 12/19/22 11:54 Lymph # (Auto) 2.0 10^3/uL (0.8-4.8) 12/19/22 11:54 [place] # (Auto) 0.8 10^3/uL (0.2-0.9) 12/19/22 11:54 Eos # (Auto) 0.0 10^3/uL (0.0-0.8) 12/19/22 11:54 Baso # (Auto) 0.0 10^3/uL (0.0-0.1) 12/19/22 11:54 Nucleated RBC % (auto) 0 % 12/19/22 11:54 Nucleated RBCs # 0.0 /100WBC 12/19/22 11:54 D-Dimer 0.51 ug/mIFEU (0-0.59) 12/19/22 11:54 Specimen Type Arterial 12/19/22 14:14 Sample Site Radial, right 12/19/22 14:14 ABG pH 7.50 (7.35-7.45) H 12/19/22 14:14 ABG pCO2 29.7 mmHg (35-45) L 12/19/22 14:14 ABG pO2 82.8 mmHg (80.0-100.0) 12/19/22 14:14 ABG HCO3 23.3 mmol/L (22-26) 12/19/22 14:14 ABG O2 Saturation 97.4 12/19/22 14:14 ABG Base Excess 1.3 mmol/L (-2.0-2.0) 12/19/22 14:14 Jonathan Test Pos 12/19/22 14:14 A-a O2 Gradient 3.5 mmHg (5-10) L 12/19/22 14:14 Hematocrit 49.8 % (37-47) H 12/19/22 14:14 Hgb O2 Saturation 96.3 % (95-100) 12/19/22 14:14 Carboxyhemoglobin 0.8 %THgb (0.4-20.1) 12/19/22 14:14 Methemoglobin 0.4 % (0.4-1.5) 12/19/22 14:14 Total Hemoglobin 16.3 g/dL (12-16) H 12/19/22 14:14 Sodium 137.0 mmol/L (131-143) 12/19/22 14:14 Potassium 3.9 mmol/L (3.5-5.0) 12/19/22 14:14 Glucose 141.0 mg/dL (70-115) H 12/19/22 14:14 Ionized Calcium 1.2 mmol/L (1.1-1.4) 12/19/22 14:14 O2 Delivery Device Room air 12/19/22 14:14 FiO2 21.0 % 12/19/22 14:14 Architectural Superintendent ID glc 12/19/22 14:14 Sodium 135 mmol/L (136-145) L 12/19/22 11:54 Potassium 4.1 mmol/L (3.5-5.1) 12/19/22 11:54 Chloride 99 mmol/L (98-107) 12/19/22 11:54 Carbon Dioxide 23 mmol/L (22-29) 12/19/22 11:54 Anion Gap 17.1 (5-19) 12/19/22 11:54 BUN 12 mg/dL (8-23) 12/19/22 11:54 Creatinine 0.6 mg/dL (0.5-0.9) 12/19/22 11:54 GFR Calculation 102.0 mL/min (90-130) 12/19/22 11:54 Glucose 158 mg/dL (65-115) H 12/19/22 11:54 Calculated Osmolality 283 mOsm/kg (285-295) L 12/19/22 11:54 Calcium 9.5 mg/dL (8.5-10.5) 12/19/22 11:54 Urine Color Yellow (Yellow) 12/19/22 11:08 Urine Appearance Clear (CLEAR) 12/19/22 11:08 Urine pH 7 (5-7) 12/19/22 11:08 Ur Specific [place] 1.010 (1.005-1.030) 12/19/22 11:08 Urine Protein Neg (Negative) 12/19/22 11:08 Urine Glucose (UA) Norm (Normal) 12/19/22 11:08 Urine Ketones 1+ (Negative) H 12/19/22 11:08 Urine Blood Neg (Negative) 12/19/22 11:08 Urine Nitrate Negative (Negative) 12/19/22 11:08 Urine Bilirubin Neg (Negative) 12/19/22 11:08 Urine Urobilinogen Norm mg/dL (Negative) 12/19/22 11:08 Ur Leukocyte Esterase Negative (Negative) 12/19/22 11:08 Urine RBC 0-4 /hpf (0-2) H 12/19/22 11:08 Urine WBC 0-4 /hpf (0-5) H 12/19/22 11:08 Ur Squamous Epith Cells 0-4 /hpf (0-5) H 12/19/22 11:08 Amorphous Sediment Trace /hpf 12/19/22 11:08 Urine Bacteria 2+ /hpf (NONE) H 12/19/22 11:08 Urine Mucus Trace /hpf 12/19/22 11:08 Imaging Data CXR: My impression: AP chest shows nothing acute. No infiltrates, effusions, pneumothorax. No cardiomegaly. Radiologist's impression: Procedure(s): XR chest 1V portable [id number] Accession Number(s): [id number] Report Number: [id number] PROCEDURE INFORMATION: Exam: XR Chest Exam date and time: 12/19/2022 1:17 PM Age: 62 years old Clinical indication: Shortness of breath; Additional info: Hypoxia TECHNIQUE: Imaging protocol: Radiologic exam of the chest. Views: 1 view. COMPARISON: CR XR CHEST 1V PORTABLE [id number] 05/08/2020 1:17 PM, ABDOMEN CT DATED 08/16/2018. FINDINGS: Lungs: Streaky bibasilar atelectasis noted. No consolidation. Pleural spaces: Unremarkable. No pleural effusion. No pneumothorax. Heart/Mediastinum: Stable cardiomediastinal silhouette. Prominent pericardial fat pads seen bilaterally. Bones/joints: Unremarkable. XR/XR chest 1V portable [id number] IMPRESSION: Evidence of active cardiopulmonary disease. ? Dictated By: Kyrie Holm Signed By: Kyrie Holm Signed Date/Time: 12/19/22 1337 Discharge Plan Discharge Clinical Impression: Perforated sigmoid colon, Diverticulitis large intestine Condition: Stable Prescriptions: No Action cholecalciferol (vitamin D3) 125 mcg (5,000 unit) capsule 125 mcg PO DAILY Qty: 90 1RF Hold Instructions: Dose Change dsirvua-pwty-pevyx-oreg-capryl 100 mg-150 mg- 50 mg-150 mg Capsule 1 cap PO DAILY Referrals: Genie Bello FNP [Primary Care Provider] - Coding Level of Care Code ED Cream Tester for Chg Aleisha
[2022-12-19 12:09] LABS: Basophils % 0.2 %; Eosinophils % 0.2 %; Hematocrit 49.2 % (37.0-47.0); Hemoglobin 16.3 g/dL (11.5-15.3); Lymphocytes % 12.6 %; Mean Corpuscular HGB Conc 33.1 g/dL (30.0-36.0); Mean Corpuscular Hemoglobin 30.6 pg (28.0-34.0); Mean Corpuscular Volume 92.5 fl (81-99); Mean Platelet Volume 9.7 fL (7.4-10.4); Monocytes # 0.8 10^3/uL (0.2-0.9); Monocytes % 5.1 %; Neutrophils # 13.17 10^3/uL (1.8-7.7); Neutrophils % 81.7 %; Nucleated Red Blood Cells % 0 %; Platelet Count 300 10^3/cmm (130-400); Red Blood Count 5.32 10^6/uL (4.1-5.3); Red Cell Distribution Width 13.7 % (12.1-15.1); White Blood Count 16.2 10^3/uL (4.0-10.0)
--- NOTE | 2022-12-19 12:12 | XRR_ITS ---
PROCEDURE INFORMATION: Exam: XR Chest Exam date and time: 12/19/2022 1:17 PM Age: 62 years old Clinical indication: Shortness of breath; Additional info: Hypoxia TECHNIQUE: Imaging protocol: Radiologic exam of the chest. Views: 1 view. COMPARISON: CR XR CHEST 1V PORTABLE [id number] 05/08/2020 1:17 PM, ABDOMEN CT DATED 08/16/2018. FINDINGS: Lungs: Streaky bibasilar atelectasis noted. No consolidation. Pleural spaces: Unremarkable. No pleural effusion. No pneumothorax. Heart/Mediastinum: Stable cardiomediastinal silhouette. Prominent pericardial fat pads seen bilaterally. Bones/joints: Unremarkable. XR/XR chest 1V portable [id number] IMPRESSION: Evidence of active cardiopulmonary disease.
[2022-12-19 12:23] LABS: Bilirubin Urine Neg (Negative); Blood Urine Neg (Negative); Glucose Urine UA Norm (Normal); Ketones Urine 1+ (Negative); Nitrate Urine Negative (Negative); Protein Urine Neg (Negative); Urine Appearance Clear (CLEAR); Urine Color Yellow (Yellow); Urobilinogen Urine Norm (Negative); pH Urine 7 (5-7)
[2022-12-19 12:24] LABS: Amorphous Sediment Urine TRACE /hpf; Bacteria Urine 2+ /hpf; Leukocyte Esterase Urine Negative (Negative); Mucus Urine TRACE /hpf; RBC Urine 0-4 /hpf (0-2); Squamous Epithelial Cell Urine 0-4 /hpf (0-5); WBC Urine 0-4 /hpf (0-5)
[2022-12-19 12:25] LABS: Add Urine Culture? No
[2022-12-19 12:30] LABS: Anion Gap 17.1 (5-19); Blood Urea Nitrogen 12 mg/dL (8-23); Calcium 9.5 mg/dL (8.5-10.5); Carbon Dioxide 23 mmol/L (22-29); Chloride 99 mmol/L (98-107); Glucose 158 mg/dL (65-115); Osmolality Calculated 283 mOsm/kg (285-295); Potassium 4.1 mmol/L (3.5-5.1); Sodium 135 mmol/L (136-145)
--- NOTE | 2022-12-19 12:41 | PC.NURSE ---
PATIENT REFUSED BOTH COVID AND FLU SWAB. PROVIDER NOTIFIED.
--- NOTE | 2022-12-19 13:08 | CT_ITS ---
WS: [id number] CT ABDOMEN AND PELVIS WITH CONTRAST HISTORY: llq abd pain; wbc 16k TECHNIQUE: Imaging performed of the abdomen and pelvis with IV contrast. Single phase imaging of the abdomen. Coronal and sagittal reformats are submitted. All CT scans at [facility] use at [facility] [facility] one of these dose optimization techniques: automated exposure control; mA and/or kV adjustment per patient size (includes targeted exams where dose is matched to clinical indication); or iterative re construction. IV CONTRAST: Omnipaque 350; 95 mL IV. Oral contrast: No DLP: 1166.03 mGy.cm COMPARISON: 08/21/2018 Lower thorax: Lung bases are clear. Heart is normal size. No hiatal hernia. Liver/biliary system: Normal size with no intrahepatic dilatation. Gallbladder: Status post cholecystectomy. Pancreas: Normal size pancreas and pancreatic duct. No adjacent inflammation. Spleen: Normal size spleen. No mass or infarct. Adrenal glands: Normal. Right kidney: Normal. Left kidney: Mild atrophy lower pole with cortical thinning. There is a residual calcification in the lower pole renal cortex. There is adjacent soft tissue of low-attenuation which may be due to obstru cted calyx. Similar findings on the prior study. Aorta: Normal. Lymphadenopathy: None. Free fluid: None. GI tract: Nondistended stomach. Cluster of air near the antrum of the stomach. There is an abundant a mount of free air in the peritoneal cavity. No small bowel obstruction. Numerous sigmoid diverticula. Acute diverticulitis in the sigmoid with adjacent small foci of free air. No abscess or free fluid. Normal appendix. Abdominal wall: Unremarkable abdominal wall. No hernia. Pelvis: No free fluid or adenopathy within the pelvis. Prior hysterectomy Bones: Unremarkable. CT/CT abdomen pelvis w con* [id number] IMPRESSION: 1. Moderate amount of free intraperitoneal air. 2. Segment of acute sigmoid diverticulitis without abscess. There are small ad jacent foci of free air. This is probably the site of the perforation. 3. There is additional free air closely associated with the antrum of the stom ach. No wall thickening. Suspect this is incidental and the free air is related to the sigmoid perforation. 4. Prior cholecystectomy. Notified Ramónshannon Key MD at 12/19/2022 2:24 PM.
[2022-12-19 13:16] LABS: D Dimer 0.51 ug/mIFEU (0-0.59)
[2022-12-19] MEDS: iohexol 350 mg/mL 500 mL Btl (per mL) IV (13:52)
[2022-12-19 14:26] LABS: ABG PCO2 29.7 mmHg (35-45); Alveolar-Arterial Oxygen Gradi 3.5 mmHg (5-10); Arterial Blood Gas Hematocrit 49.8 % (37-47); Base Excess ABG 1.3 mmol/L (-2.0-2.0); Blood Gas Allen Test Pos; Blood Gas Operator Identificat glc; Blood Gas Sample Site Radial, right; Blood Gas Sample Type Arterial; Carboxyhemoglobin 0.8 %THgb (0.4-20.1); HCO3 ABG 23.3 mmol/L (22-26); HGB O2 Sat 96.3 % (95-100); Ionized Calcium Level - ABG 1.2 mmol/L (1.1-1.4); Methemoglobin 0.4 % (0.4-1.5); Oxygen Device ROOM AIR; Oxygen Saturation ABG 97.4; PO2 ABG 82.8 mmHg (80.0-100.0); Potassium Level - ABG 3.9 mmol/L (3.5-5.0); Total Hemoglobin 16.3 g/dL (12-16)
[2022-12-19] MEDS: piperacillin-tazobactam 4.5 GM in sodium chloride 0.9% (plus) 50 ML IV (14:40)
[2022-12-19] MEDS: ondansetron 2 mg/ML SDV 2 mL 4 MG IVP (15:35)
--- NOTE | 2022-12-19 15:57 | PC.NURSE ---
PT RECEIVED FROM ED RM 2 VIA STRETCHER BY MYSELF AND NIRMAL KENNY RN. PT AMBULATED WITH ASSISTANCE TO BR TO VOID. PT GIVEN ZOFRAN 4MG VIA IVP AND HELPED TO GET INTO PT GOWN. PT NOW TEXTING HER SONS, TALKING AND STATED HER NAUSEA IS GONE. PT ALL PREPPED FOR SURGERY. CALL LIGHT IN LAP AND ATTACHED TO RAILING.
--- NOTE | 2022-12-19 16:03 | P.HP_ITS ---
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 She follows with a urologist, Dr. Moss. She has been at baseline state of health, not bothered by any new illness until last night when she started having lower abdominal pain, suprapubic, left lower quadrant. She thought it was related to her urinary bladder. This was accompanied by spasms. Pain did not improve, she came in for evaluation to ER. Has abdominal tenderness in left lower quadrant. There she is noted afebrile, but with sinus tachycardia in the 90s, white blood cell count elevation of 16.2. UA with 0-4 RBC, 0.4 WBC, 0-4 SEC, 2+ bacteria. Chest x-ray appears unremarkable with noted cardiomegaly. CT abdomen pelvis with moderate amount of free intraperitoneal air. Segment of acute sigmoid diverticulitis without abscess. Small adjacent foci of free air. Probably the site of the perforation. Additional free air closely associated with the antrum of the stomach. No wall thickening. Suspected incidental and related to the sigmoid perforation. Prior cholecystectomy. She denies ever having had any issues with her colon. Never had a colonoscopy. Surgery is consulted in ER and admission is requested with hospitalist. She is made n.p.o., received Zosyn, started on NS infusion. She is taken to PACU for preparations for exploratory surgery. In terms of CODE STATUS she states she is okay with attempted resuscitation. Names 2 of her sons who live close by would be surrogate decision makers in case she could not make her own decisions. Review of Systems Const: Denies: fever(s), chills, body aches or malaise Eyes: Denies: change in vision, eye discomfort or eye redness ENMT: Denies: throat pain, oral sores or ear or mastoid pain Card: Denies: chest pain, edema, pre-syncope or dyspnea on exertion Resp: Denies: dyspnea, productive cough, change in phlegm color or hemoptysis GI: Reports: abdominal pain and nausea; Denies: vomiting, diarrhea, constipation, hematochezia or melena : Denies: flank pain, urinary frequency or hematuria Musc: Denies: back pain, joint swelling or joint redness Skin/Breast: Denies: rash or new lesions Neuro: Denies: headache(s), numbness in extremities, weakness in extremities, dizziness, confusion or seizure-like activity Endo: Denies: polyuria or polydipsia Sung/Lymph: Denies: easy bleeding or tender lymph nodes All/Imm: Denies: urticaria or tongue swelling Medications/Allergies Home Medications Medication Instructions Recorded Confirmed Last Taken Type cholecalciferol (vitamin D3) 125 125 mcg PO DAILY #90 caps 09/13/21 12/19/22 12/18/22 Rx mcg (5,000 unit) capsule tumeric 100 mg-bita 150 mg-olive 1 cap PO DAILY 12/19/22 12/19/22 12/18/22 History 50 mg-oreg 150 mg-caprylate capsule Allergies Allergy/AdvReac Type Severity Reaction Status Date / Time sulfamethoxazole Allergy worsening Verified 12/19/22 13:02 [From Bactrim] of symptoms trimethoprim [From Bactrim] Allergy worsening Verified 12/19/22 13:02 of symptoms ciprofloxacin [From Cipro] AdvReac Mild abdominal Verified 12/19/22 13:02 cramp PFSH Acute PFSH: Medical History Chest pain Diabetes Fibromyalgia Renal artery pseudoaneurysm Staghorn renal calculus Surgical History H/O: hysterectomy History of kidney surgery Hx of cholecystectomy Family History Other Diabetes Social History Smoking and tobacco status: never smoked Alcohol intake: never Adopted: No Caregiver/support person: No Lives independently: Yes Marital status: / Current occupational status: employed Current gender identity: Female Vitals/I&O/Wt Last Vital Signs Temp 97.6 F 12/19/22 15:47 Pulse 91 12/19/22 15:47 Resp 18 12/19/22 15:47 BP 139/81 12/19/22 15:47 Pulse Ox 96 12/19/22 15:47 O2 Del Method 12/19/22 15:47 12/19/22 12/19/22 12/19/22 06:59 14:59 22:59 Intake Total 50 / 50 Balance 50 / 50 Weight last 48 hrs Weight 97.069 kg Physical Exam Const: COMMON NORMALS: patient oriented x3 and alert GENERAL APPEARANCE: cooperative NUTRITIONAL APPEARANCE: overweight ORIENTATION/CONSCIOUSNESS: Yes awake HENMT: COMMON NORMALS: oropharynx normal Neck/C-Spine: COMMON NORMALS: no JVD Resp: COMMON NORMALS: normal respiratory effort and clear to auscultation bilaterally AUSCULTATION: clear to auscultation bilaterally Cardio: COMMON NORMALS: no JVD, regular rhythm, S1 normal heart sound present, S2 normal heart sound present and No murmurs present (Cardio) RHYTHM: regular rhythm HEART SOUNDS: S1 normal heart sound present and S2 normal heart sound present GI: COMMON NORMALS: Soft to palpation AUSCULTATION: Yes Hypoactive bowel sounds present PALPATION: Yes Soft to palpation and Yes Tenderness to palpation present (GI) Details: LLQ Extremity: COMMON NORMALS: no joint enlargement and no pedal edema Neuro: COMMON NORMALS: patient oriented x3 and moves all extremities SEN SORIUM/ORIENTATION: Yes alert Skin: COMMON NORMALS: no rashes or lesions noted GENERAL SKIN EXAM: no rashes or lesions noted Sepsis: Is patient septic: Yes Focused sepsis exam performed: Yes Data 12/19/22 11:54 12/19/22 11:54 A&P Assessment and plan (1) Perforated sigmoid colon: Going to OR for exploratory surgery. She is otherwise been at baseline state of health. Nothing currently can be optimized that would justify delaying surgery. Continue Zosyn. IV fluid with LR, bowel rest. Possible sepsis without endorgan injury, with leukocytosis 16.2, sinus tachycardia 91. Source would be from colon with diverticulitis, colon perforation. Possible early peritonitis with possible progression to septic shock, threat to life if untreated. Requested blood cultures, lactic acid. Discussed with ER physician. ER documentation reviewed. Reviewed blood count, chemistry panel and UA. Requesting follow-up blood count, chemistry panel. (2) Diverticulitis large intestine: As above. Qualifiers: Diverticulitis bleeding: unspecified bleeding status Diverticulitis complication: with perforation Qualified Code(s): K57.20 - Diverticulitis of large intestine with perforation and abscess without bleeding Plan Initially low oxygen saturation: Initially concern regarding low oxygen saturation, however, appears was secondary to a faulty probe. She has denied any shortness of breath. Saturating in mid to high 90s on room air. No evidence of active pulmonary disease on my interpretation of the x-ray. Does have some chronic cardiomegaly. D-dimer results reviewed and unremarkable. Low probability of PE. History of staghorn stone: Denies recurrent UTIs. 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 Follows with urology Dr. Moss. Attestations Medical Necessity Statement*: Admission of over 2 midnights is anticipated for assessment of management of colonic perforation, diverticulitis, possible sepsis. Diagnoses Perforated sigmoid colon K63.1 Diverticulitis large intestine K57.20 Diverticulitis bleeding: unspecified bleeding status Diverticulitis complication: with perforation
--- NOTE | 2022-12-19 16:03 | ANES.PREANE2 ---
Pre-Anesthetic Assessment Height/Weight: Height 1.65 m Weight 97.069 kg Temp Pulse Resp BP Pulse Ox O2 Del Method 97.6 F 91 18 139/81 96 12/19/22 15:47 12/19/22 15:47 12/19/22 15:47 12/19/22 15:47 12/19/22 15:47 12/19/22 15:47 Operation Date: 12/19/22 16:00 Proposed Procedures p Exploratory Laparotomy with Hartmans procedure(Not Applicable) - Willian Berg DO Familial anesthetic complications: None Was Beta Margarita taken within 24 hours: N/A Was Clonidine taken within 24 hours: N/A Social No alcohol and No tobacco Exam alert, oriented x 3, clear to auscultation bilaterally and regular rate & rhythm Airway Submandibular: within normal limits Cervical ROM: within normal limits Mallampati: Class II Dentition: full Metabolic Diabetes Mellitus and Morbid Obesity Musc/skel Fibromyalgia, Lower Back Pain and Osteoarthritis/DJD Anesthetic Plan ASA status: 3E Anesthesia: General (RSI) Medications/Allergies Home Medications Medication Instructions Recorded Confirmed Last Taken Type cholecalciferol (vitamin D3) 125 125 mcg PO DAILY #90 caps 09/13/21 12/19/22 12/18/22 Rx mcg (5,000 unit) capsule tumeric 100 mg-bita 150 mg-olive 1 cap PO DAILY 12/19/22 12/19/22 12/18/22 History 50 mg-oreg 150 mg-caprylate capsule Allergies Allergy/AdvReac Type Severity Reaction Status Date / Time sulfamethoxazole Allergy worsening Verified 12/19/22 13:02 [From Bactrim] of symptoms trimethoprim [From Bactrim] Allergy worsening Verified 12/19/22 13:02 of symptoms ciprofloxacin [From Cipro] AdvReac Mild abdominal Verified 12/19/22 13:02 cramp PFSH Anesthesia Medical History (Updated 12/19/22 @ 15:49 by Thierno Alvarado MD) Chest pain Diabetes Fibromyalgia Renal artery pseudoaneurysm Staghorn renal calculus Surgical History (Updated 12/19/22 @ 15:46 by Thierno Alvarado MD) H/O: hysterectomy Hx of cholecystectomy Social History Smoking and tobacco status: never smoked Alcohol intake: never Adopted: No Caregiver/support person: No Lives independently: Yes Marital status: / Current occupational status: employed Current gender identity: Female Data Anesthesia 12/19/22 11:54 12/19/22 11:54 Short CBC 12/19/22 Range/Units 11:54 WBC 16.2 H (4.0-10.0) 10^3/uL Hgb 16.3 H (11.5-15.3) g/dL Hct 49.2 H (37.0-47.0) % MCV 92.5 (81-99) fl Plt Count 300 (130-400) 10^3/cmm Neut % (Auto) 81.7 % Neut # (Auto) 13.17 H (1.8-7.7) 10^3/uL BMP 12/19/22 11:54 Sodium 135 L Potassium 4.1 Chloride 99 Carbon Dioxide 23 BUN 12 Creatinine 0.6 Glucose 158 H Calcium 9.5 Urine 12/19/22 Range/Units 11:08 Urine Color Yellow (Yellow) Urine Appearance Clear (CLEAR) Urine pH 7 (5-7) Ur Specific [place] 1.010 (1.005-1.030) Urine Protein Neg (Negative) Urine Glucose (UA) Norm (Normal) Urine Ketones 1+ H (Negative) Urine Nitrate Negative (Negative) Urine Bilirubin Neg (Negative) Ur Leukocyte Esterase Negative (Negative) Urine RBC 0-4 H (0-2) /hpf Urine WBC 0-4 H (0-5) /hpf Coags 12/19/22 11:54 D-Dimer 0.51 ABG 12/19/22 14:14 Specimen Type Arterial Sample Site Radial, right ABG pH 7.50 H ABG pCO2 29.7 L ABG pO2 82.8 ABG HCO3 23.3 ABG O2 Saturation 97.4 ABG Base Excess 1.3 A-a O2 Gradient 3.5 L O2 Delivery Device Room air FiO2 21.0 Cardiac Studies: Echocardiogram Ultrasound 04/19/20
--- NOTE | 2022-12-19 16:51 | PM.CONSULT ---
Providers/Reason For Consult Consulting Physician/Specialty*: Dr. Willian Berg DO/General surgery Reason for Consult*: Perforated sigmoid diverticulitis Attending Physician: Marnie Chaney Primary Care Provider: STEVEN Tillman History of Present Illness History of Present Illness Dipti Bansal is a 62 year old female who presented to the hospital with 1 day history of left lower quadrant abdominal pain. Her pain is sharp and constant. Palpation makes the pain worse. Nothing makes pain better. The pain radiates across to her abdomen. CT shows acute perforated sigmoid diverticulitis with moderate free air. She has never had diverticulitis before. She denies any family history of colon cancer. She denies any fever or chills. Denies any nausea or vomiting Review of Systems General: Reports: 10 or more systems reviewed and unremarkable except in HPI and below Medications/Allergies Home Medications Medication Instructions Recorded Confirmed Last Taken Type cholecalciferol (vitamin D3) 125 125 mcg PO DAILY #90 caps 09/13/21 12/19/22 12/18/22 Rx mcg (5,000 unit) capsule tumeric 100 mg-bita 150 mg-olive 1 cap PO DAILY 12/19/22 12/19/22 12/18/22 History 50 mg-oreg 150 mg-caprylate capsule Allergies Allergy/AdvReac Type Severity Reaction Status Date / Time sulfamethoxazole Allergy worsening Verified 12/19/22 13:02 [From Bactrim] of symptoms trimethoprim [From Bactrim] Allergy worsening Verified 12/19/22 13:02 of symptoms ciprofloxacin [From Cipro] AdvReac Mild abdominal Verified 12/19/22 13:02 cramp PFSH Acute PFSH: Medical History Chest pain Diabetes Fibromyalgia Renal artery pseudoaneurysm Staghorn renal calculus Surgical History H/O: hysterectomy History of kidney surgery Hx of cholecystectomy Family History Other Diabetes Social History Smoking and tobacco status: never smoked Alcohol intake: never Adopted: No Caregiver/support person: No Lives independently: Yes Marital status: / Current occupational status: employed Current gender identity: Female Vitals/I&O/Wt Last Vital Signs Temp 97.6 F 12/19/22 15:47 Pulse 91 12/19/22 15:47 Resp 18 12/19/22 15:47 BP 139/81 12/19/22 15:47 Pulse Ox 96 12/19/22 15:47 O2 Del Method 12/19/22 15:47 12/19/22 12/19/22 12/19/22 06:59 14:59 22:59 Intake Total 50 / 50 Balance 50 / 50 Weight last 48 hrs Weight 214 lb Physical Exam Narrative: General : Patient is well developed , no acute distress, oriented x3 Head : Normal cephalic, a-traumatic. Ears : Pinnae and external canal are normal. Hearing is normal. Eyes : PERRLA, Sclera and injection are normal. No conjunctival discharge. Nose : Mucous membranes are without erythema. Throat : buccal mucosa is normal, gums are without significant recession or hypertrophy. Lungs : Equal chest rise bilaterally, no use of accessory muscles, trachea is midline. Cor : Rate and rhythm are normal. Abdomen : Soft, distended, diffusely tender to palpation but maximally in the left lower quadrant with some guarding, negative rebound Extremities : No edema, no cyanosis or clubbing, dorsalis pedis pulses are present bilaterally, non-tender to palpation of calves. Upper extremities are normal bilaterally. Back : non-tender to palpation, no CVA tenderness. Neuro : CN II - XII intact, Upper and lower extremities have equal and full strength Data 12/19/22 11:54 12/19/22 11:54 A&P Assessment and plan (1) Diverticulitis of large intestine with complication: (2) Sepsis: Plan Zosyn IV fluids N.p.o. Exploratory laparotomy with Hilton's procedure The risks and benefits of the procedure, including but not limited to, bleeding, infection, scar, numbness, pain, damage to surrounding structures, intra-abdominal abscess, ostomy malfunction, were explained to the patient. She is understanding of the risks and wishes to proceed. Coding Level of Care Code Acute Code for [facility] Diagnoses Diverticulitis of large intestine with complication K57.32 Sepsis A41.9
--- NOTE | 2022-12-19 18:34 | PC.NURSE ---
Pt's family took her purse and all personal belongings. Her earrings were put in biohazard bag in her purse.
--- NOTE | 2022-12-19 20:39 | P.OP_ITS ---
Operative Report Date of procedure: December 19, 2022 Pre-op diagnosis: Sepsis with perforated sigmoid diverticulitis Post-op diagnosis: same Procedure done: Exploratory laparotomy with Hilton's procedure Implants: 19 [place] Chalino drain into pelvis and left lower quadrant Specimens removed/disposition: Sigmoid colon Surgeon: Dr. Willian Berg DO Anesthesia: General Estimated blood loss (mL): 50 Complications: None apparent Brief History: This is a very pleasant 62-year-old female who presented to the hospital septic with perforated diverticulitis and free air in the abdomen. Exploratory laparotomy and Hilton's procedure were indicated. The risk and benefits of the procedure were explained and documented. Procedure: Patient was wheeled in the OR and placed on the OR table in the supine position. The abdomen was inspected prepped and draped in usual sterile fashion. General endotracheal intubation was achieved by the department anesthesia. Timeout was performed. All present were in agreement. A 10 blade scalpel was used to make a midline laparotomy incision from just superior to the umbilicus down to the pubis. Electrocautery was then used to dissect down through the subcutaneous tissue and the fascia. The peritoneum was opened bluntly. This was extended cephalad and caudad with electrocautery. The sigmoid colon was identified and firm with a small area of perforation. There was only a small amount of contamination in the abdomen. A small window was made in the mesentery where the sigmoid colon meets the rectum. A blue RHIANNA 100 load was used to transect the sigmoid from the rectum. The Enseal was then used to transect the mesentery up through the sigmoid colon. The RHIANNA stapler with a blue 100 load was again used to transect the proximal sigmoid. Specimen was passed off. The left white line of [place] was taken down bluntly and sharply. Additional mesentery was ligated with the Enseal to create length for colostomy. The abdomen was then rinsed with 2 L of warm saline and suctioned. A 19 [place] Chalino drain was p laced into the pelvis and left lower quadrant coming out of the right lower quadrant. The drain was sewn in place using 3-0 nylon in interrupted fashion. A proper site for colostomy was located and a [place] of skin and subcutaneous fat were excised using electrocautery. The anterior rectus sheath was then incised in a cruciate fashion. The rectus muscle was then bluntly. The posterior rectus sheath was ligated linearly. 2 finger breaths were used to dilate the incisions. The descending colon was then brought up through the future colostomy site. Attention was then brought to closing the abdomen. Two #1 PDS's in a running fashion were used to close the fascia. Skin was closed with james. The colostomy was then matured in the typical fashion. Colostomy was pink and viable at the end of the procedure. An ostomy appliance and sterile dressings were applied. Patient tolerated procedure well.
--- NOTE | 2022-12-19 20:58 | PC.NURSE ---
Small amount of bleeding seeping around wafer. Dr. Berg @ bedside. To reinforce under ostomy with 4x4s
[2022-12-19] MEDS: acetaminophen 325 mg Tablet 650 MG PO (22:09)
[2022-12-19] MEDS: lactated ringers 1,000 ML 150 ML IV (22:13)
--- NOTE | 2022-12-19 22:44 | PC.NURSE ---
Pt referred to Dr. Castro for review of con't abd pain post surgery w/apap already being administered. NO received and noted for Morphine 2mg IVP q4h PRN pain. Pt and family notified.
[2022-12-19] MEDS: morphine 4 mg/mL SDV 1 mL 2 MG IVP (22:48)
[2022-12-20] VITALS (18 sets, daily range): BP systolic 109–132; BP diastolic 68–82; PULSE 70–91; RESP 15–19; TEMP 36.5–37; O2SAT 92–96
--- NOTE | 2022-12-20 00:50 | PC.NURSE ---
Pt referred to Dr. Castro for review of unmanaged pain at this time. Will await orders.
--- NOTE | 2022-12-20 00:52 | PC.NURSE ---
NO received and noted for 1) administer 1x extra dose of Morphine 2mg IVP now. Pt notified of the new orders.
[2022-12-20] MEDS: morphine 4 mg/mL SDV 1 mL 2 MG IVP ×5 (00:57→18:56)
[2022-12-20 01:42] LABS: Basophils % 0.2 %; Hematocrit 43.7 % (37.0-47.0); Hemoglobin 14.3 g/dL (11.5-15.3); Lymphocytes # 1.3 10^3/uL (0.8-4.8); Lymphocytes % 7.9 %; Mean Corpuscular HGB Conc 32.7 g/dL (30.0-36.0); Mean Corpuscular Hemoglobin 30.9 pg (28.0-34.0); Mean Corpuscular Volume 94.4 fl (81-99); Mean Platelet Volume 9.6 fL (7.4-10.4); Monocytes # 0.9 10^3/uL (0.2-0.9); Monocytes % 5.5 %; Neutrophils # 14.62 10^3/uL (1.8-7.7); Nucleated Red Blood Cells % 0 %; Platelet Count 278 10^3/cmm (130-400); Red Blood Count 4.63 10^6/uL (4.1-5.3); Red Cell Distribution Width 14.1 % (12.1-15.1)
[2022-12-20 01:57] LABS: Lactic Sepsis W/Reflex 1.1 mmol/L (0.5-2.2)
[2022-12-20 01:58] LABS: Anion Gap 16.4 (5-19); Blood Urea Nitrogen 13 mg/dL (8-23); Calcium 8.4 mg/dL (8.5-10.5); Carbon Dioxide 22 mmol/L (22-29); Chloride 104 mmol/L (98-107); Glomerular Filtration Rate 85.4 mL/min (90-130); Glucose 184 mg/dL (65-115); Osmolality Calculated 291 mOsm/kg (285-295); Potassium 4.4 mmol/L (3.5-5.1); Sodium 138 mmol/L (136-145)
[2022-12-20] MEDS: heparin 5,000 unit/mL INJ 1 mL 5000 UNIT SUBCUT ×2 (03:41→15:48)
--- NOTE | 2022-12-20 04:34 | PC.NURSE ---
Referred to Dr. Castro for review of ordered ABT w/start time at 2230 tonight instead of 8 hrs from last dose, which was approximately 1500 in OR. NO received and noted to retime Zosyn.
[2022-12-20] MEDS: lactated ringers 1,000 ML 150 ML IV ×4 (04:43→23:59)
[2022-12-20] MEDS: piperacillin-tazobactam 3.375 GM in sodium chloride 0.9% (plus) 50 ML IV ×3 (04:44→19:52)
--- NOTE | 2022-12-20 07:59 | ANE.PACU2 ---
Inpatient post-anesthesia follow up: Airway intact: Yes Vital signs: Temperature 97.9 F Pulse Rate 73 Respiratory Rate 17 Blood Pressure 118/82 Pulse Oximetry 96 Oxygen Delivery Me thod Room Air Oxygen Flow Rate 2 Fraction of Inspir ed Oxygen Hydration adequate: Yes Nausea and vomiting: No Pain level: 4 Mental status: Baseline
[2022-12-20] MEDS: oxyCODONE 5 mg IR Tab/Cap PO (08:01)
[2022-12-20] MEDS: ondansetron 2 mg/ML SDV 2 mL 4 MG IVP ×2 (14:03→22:09)
[2022-12-20] MEDS: pantoprazole 40 mg SDV IVP (15:48)
--- NOTE | 2022-12-20 16:38 | PM.PN ---
Subjective Subjective: Patient seen and examined. Pain controlled. Denies any nausea or vomiting. No flatus in the ostomy Vitals/I&O/Wt Last Vital Signs Temp 98.1 F 12/21/22 04:00 Pulse 73 12/21/22 06:00 Resp 18 12/21/22 04:00 BP 124/79 12/21/22 04:00 Pulse Ox 91 12/21/22 04:00 O2 Del Method 12/21/22 04:00 O2 Flow Rate 2 12/19/22 21:23 12/20/22 12/20/22 12/21/22 14:59 22:59 06:59 Intake Total 1050 / 1050 1050 / 2100 2435 / 4535 Output Total 1200 / 1200 430 / 1630 500 / 2130 Balance -150 / -150 620 / 470 1935 / 2405 Weight last 48 hrs Weight 259 lb 4 oz Weight 248 lb Weight 214 lb Physical Exam Narrative: General: No acute distress, awake alert and oriented x3 Abdomen: Soft, mildly distended, appropriately tender to palpation, no guarding rebound or masses Ostomy: [place] and patent. No production yet Dressings clean dry and intact Drain serosanguineous Urinary Catheter Management: Estrada: Cath Placed During This Visit: yes Reason for Continuing Indwelling Catheter: Perioperative Use in Selected Surgeries Urinary Catheter Date of Insertion: 12/19/22 Urinary Catheter Time of Insertion: 18:28 Data 12/21/22 04:50 12/21/22 04:50 Micro: Microbiology 12/19/22 01:20 Blood Culture - Preliminary Blood NEGATIVE TO DATE 12/19/22 01:18 Blood Culture - Preliminary Blood NEGATIVE TO DATE A&P Assessment and plan (1) Diverticulitis of large intestine with complication: (2) Perforated sigmoid colon: Plan Postoperative day #1 status post exploratory laparotomy with Hilton's procedure for perforated diverticulitis IV antibiotics IV fluids Incentive spirometer Await return of bowel function Attestations Medical Necessity Statement*: Patient requires multiple more nights in the hospital for IV antibiotics and recovery after sepsis from perforated diverticulitis Coding Level of Care Code Acute Code for [facility] Diagnoses Diverticulitis of large intestine with complication K57.32 Perforated sigmoid colon K63.1
[2022-12-20] MEDS: HYDROmorphone 1 mg/mL INJ 1 mL IVP ×2 (16:48→22:10)
--- NOTE | 2022-12-20 19:13 | PC.NURSE ---
Patient has done okay today. Required pain medication frequently for abdominal pain. Stoma is beefy red with bloody drainage. Surgical incision dressing has minimal drainage noted. ANNA drain in place with 30ml of output. 400ml of urine output. Patient currently resting in bed with bilateral SCD's in place and IS at bedside.
--- NOTE | 2022-12-20 20:08 | PM.PN ---
Subjective Subjective: This morning having abdominal pain, in the afternoon somewhat worse. Currently slightly better. Pain medication was escalated. Denies any vomiting. Did have nausea which was helped with nausea medication. So far not passing flatus. Does feel hungry. Vitals/I&O/Wt Last Vital Signs Temp 97.9 F 12/20/22 15:30 Pulse 75 12/20/22 15:30 Resp 16 12/20/22 18:56 BP 115/74 12/20/22 15:30 Pulse Ox 94 12/20/22 15:30 O2 Del Method 12/20/22 15:30 O2 Flow Rate 2 12/19/22 21:23 12/20/22 12/20/22 12/20/22 06:59 14:59 22:59 Intake Total 1695 / 3095 1050 / 1050 1050 / 2100 Output Total 505 / 845 1200 / 1200 430 / 1630 Balance 1190 / 2250 -150 / -150 620 / 470 Weight last 48 hrs Weight 112.491 kg Weight 97.069 kg Physical Exam Const: COMMON NORMALS: patient oriented x3 and alert GENERAL APPEARANCE: cooperative NUTRITIONAL APPEARANCE: overweight ORIENTATION/CONSCIOUSNESS: Yes awake HENMT: COMMON NORMALS: oropharynx normal Neck/C-Spine: COMMON NORMALS: no JVD Resp: COMMON NORMALS: normal respiratory effort and clear to auscultation bilaterally AUSCULTATION: clear to auscultation bilaterally Cardio: COMMON NORMALS: no JVD, regular rhythm, S1 normal heart sound present, S2 normal heart sound present and No murmurs present (Cardio) RHYTHM: regular rhythm HEART SOUNDS: S1 normal heart sound present and S2 normal heart sound present GI: COMMON NORMALS: Soft to palpation AUSCULTATION: Yes Other GI auscultation findings (BS present) PALPATION: Yes Soft to palpation and Yes Tenderness to palpation present (GI) Extremity: COMMON NORMALS: no joint enlargement and no pedal edema Neuro: COMMON NORMALS: patient oriented x3 and moves all extremities SENSORIUM/ORIENTATION: Yes alert Skin: COMMON NORMALS: no rashes or lesions noted GENERAL SKIN EXAM: no rashes or lesions noted Urinary Catheter Management: Estrada: Cath Placed During This Visit: yes Reason for Continuing Indwelling Catheter: Perioperative Use in Selected Surgeries Urinary Catheter Date of Insertion: 12/19/22 Urinary Catheter Time of Insertion: 18:28 Data 12/20/22 01:18 12/20/22 01:18 Micro: Microbiology 12/19/22 01:18 Blood Culture - Preliminary Blood SPECIMEN COLLECTED 12/19/22 01:20 Blood Culture - Preliminary Blood SPECIMEN COLLECTED A&P Assessment and plan (1) Perforated sigmoid colon: Surgery documentation reviewed. Continue NPO. IVF. Empiric antibiotics. CBC appreciated, WBC count down to 17,000. Tachycardia resolved. Afebrile. Possible sepsis resolved without endorgan damage. Lactic acid appreciated, not elevated. Checking blood culture, so far preliminary pending. Follow-up blood count after surgery, chemistry panel for reassessment of electrolytes, renal function while NPO, with IVF. Continue pain control, after receiving extra dose of IV pain medication. DVT prophylaxis. Follow-up CBC for anemia. (2) Diverticulitis large intestine: As above. Qualifiers: Diverticulitis bleeding: unspecified bleeding status Diverticulitis complication: with perforation Qualified Code(s): K57.20 - Diverticulitis of large intestine with perforation and abscess without bleeding Plan Initially low oxygen saturation: Saturating well on room air. Initially concern regarding low oxygen saturation, however, appears was secondary to a faulty probe. She has denied any shortness of breath. Saturating in mid to high 90s on room air. No evidence of active pulmonary disease on my interpretation of the x-ray. Does have some chronic cardiomegaly. D-dimer results reviewed and unremarkable. Low probability of PE. History of staghorn stone: Denies recurrent UTIs. 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 Follows with urology Dr. Moss. Monitor renal function. Requested. Attestations Medical Necessity Statement*: Continue admission for assessment and following perforated sigmoid diverticulitis, resolving sepsis, continues with bowel rest, awaiting return of bowel function. Diagnoses Perforated sigmoid colon K63.1 Diverticulitis large intestine K57.20 Diverticulitis bleeding: unspecified bleeding status Diverticulitis complication: with perforation
[2022-12-20 22:15] LABS: Glucose Point of Care 96 mg/dL (70-110)
[2022-12-21] VITALS (10 sets, daily range): BP systolic 113–135; BP diastolic 69–79; PULSE 71–89; RESP 17–22; TEMP 36.7–37.3; O2SAT 91–96
[2022-12-21] MEDS: morphine 4 mg/mL SDV 1 mL 2 MG IVP ×3 (00:06→13:20)
[2022-12-21] MEDS: ondansetron 2 mg/ML SDV 2 mL 4 MG IVP ×3 (02:59→19:56)
[2022-12-21] MEDS: HYDROmorphone 1 mg/mL INJ 1 mL IVP (02:59)
[2022-12-21] MEDS: heparin 5,000 unit/mL INJ 1 mL 5000 UNIT SUBCUT ×2 (03:32→17:15)
[2022-12-21] MEDS: piperacillin-tazobactam 3.375 GM in sodium chloride 0.9% (plus) 50 ML IV ×3 (04:47→19:57)
[2022-12-21 05:19] LABS: Basophils % 0.3 %; Eosinophils % 0.3 %; Hematocrit 38.3 % (37.0-47.0); Hemoglobin 12.3 g/dL (11.5-15.3); Lymphocytes # 2.3 10^3/uL (0.8-4.8); Lymphocytes % 19.1 %; Mean Corpuscular HGB Conc 32.1 g/dL (30.0-36.0); Mean Corpuscular Hemoglobin 31.3 pg (28.0-34.0); Mean Corpuscular Volume 97.5 fl (81-99); Mean Platelet Volume 9.8 fL (7.4-10.4); Monocytes % 8.3 %; Neutrophils # 8.46 10^3/uL (1.8-7.7); Neutrophils % 71.4 %; Nucleated Red Blood Cells % 0 %; Platelet Count 222 10^3/cmm (130-400); Red Blood Count 3.93 10^6/uL (4.1-5.3); Red Cell Distribution Width 14.4 % (12.1-15.1); White Blood Count 11.9 10^3/uL (4.0-10.0)
[2022-12-21 05:32] LABS: Blood Urea Nitrogen 10 mg/dL (8-23); Calcium 7.6 mg/dL (8.5-10.5); Carbon Dioxide 29 mmol/L (22-29); Chloride 102 mmol/L (98-107); Glucose 141 mg/dL (65-115); Osmolality Calculated 279 mOsm/kg (285-295); Sodium 134 mmol/L (136-145)
[2022-12-21] MEDS: lactated ringers 1,000 ML 150 ML IV (06:03)
[2022-12-21 06:12] LABS: Anion Gap 9.1 (5-19); Potassium 6.1 mmol/L (3.5-5.1)
[2022-12-21 06:45] LABS: Glucose Point of Care 124 mg/dL (70-110)
--- NOTE | 2022-12-21 08:59 | ECG_ITS ---
[facility] Test Date: 2022-12-21 Pat Name: Dipti Bansal Department: Room: 269 Gender: Female Coater Helper: : [id number] Requested By: Thierno Alvarado Order Number: [id number] Reading MD: Ania Simpson M.D. Measurements Intervals [place] Rate: 72 P: 0 MA: 0 QRS: 2 QRSD: 84 T: 28 QT: 398 QTc: 438 Interpretive Statements ATRIAL FIBRILLATION LOW QRS VOLTAGE IN PRECORDIAL LEADS [QRS DEFLECTION < 1.0 mV IN CHEST LEADS] ABNORMAL RHYTHM ECG Compared to ECG 08/27/2018 00:09:28 Low QRS voltage now present Sinus rhythm no longer present Electronically Signed On 12-21-2022 20:09:59 BEVELING AND EDGING MACHINE OPERATOR by Ania Simpson M.D. [id number]
[2022-12-21] MEDS: sodium chloride 0.9% 1,000 ML 100 ML IV ×2 (09:23→19:57)
[2022-12-21 10:47] LABS: Glucose Point of Care 109 mg/dL (70-110)
--- NOTE | 2022-12-21 12:16 | PC.CHAP ---
Pastoral Care Encounter/Spiritual Assessment Type of Contact [] Declined manufacturing mechanic visit [] Patient/Family/Request visit [] Outpatient visit [] Follow-up visit [] Physician referral [] Code/Alert [x] Routine visit [] Staff referral [] Actively dying [] Patient sleeping [] Family support [] [] Out of room [] Palliative care [] [x] Receiving care in room [] Pre-surgical visit [] Trauma [] Long length of stay [] ICU visit [] Other: Relational/Emotional Strength [x] Patient feels connected with others/family/visitors/staff [] Distress [] Loneliness/isolation [] Abandonment Spirituality of Patient [x] Person of Denise [] Attends Pentecostalism of their Denise [x] Believes in Prayer [] Reads Bible or Anabaptism materials [] There are Spiritual issues to be addressed Bilingual Medical Receptionist Interventions [x] Prayer [x] Active listening [x] Non-anxious presence [x] Spiritual/emotional support [] Crisis/trauma care [x] Spiritual counseling [] Bereavement support [] Provided bereavement packet [] Provided Bible/devotional materials [] Provided toy/stuffed animal, coloring book to patient or family member [] Provided Communion [] Anointing/[place] [] Salvation [x] Completed spiritual assessment [] Other: Impact on Illness or Injury [] Angry [] Fearful [] Anxious [] Often cries [] Exhaustion [] Unable to work [] Unable to attend pentecostalism [] Unable to walk/stand [] Unable to read [] Unable to drive [] Unable to eat/drink [] Unable to sleep [] Unable to be with family [] Patient intubated [] Other: Summary bearthing feeling better has a positive attitude well be going home Time spent with patient 10 mins
--- NOTE | 2022-12-21 12:39 | P.PN_ITS ---
Subjective Subjective: Patient seen and examined. Pain controlled. Still no ostomy output Vitals/I&O/Wt Last Vital Signs Temp 98.5 F 12/22/22 04:00 Pulse 73 12/22/22 05:58 Resp 20 H 12/22/22 04:00 BP 129/78 12/22/22 04:00 Pulse Ox 93 12/22/22 04:00 O2 Del Method 12/22/22 04:00 O2 Flow Rate 2 12/19/22 21:23 12/21/22 12/21/22 12/22/22 14:59 22:59 06:59 Intake Total 555 / 555 1050 / 1605 881.667 / 2486.667 Output Total 350 / 350 Balance 555 / 555 700 / 1255 881.667 / 2136.667 Weight last 48 hrs Weight 259 lb Weight 259 lb 4 oz Physical Exam Narrative: General: No acute distress, awake alert and oriented x3 Abdomen: Soft, mildly distended, appropriately tender to palpation, no guarding rebound or masses Ostomy: [place] and patent. No production yet Incision intact without erythema or exudate Drain serosanguineous Urinary Catheter Management: Estrada: Cath Placed During This Visit: yes Reason for Continuing Indwelling Catheter: Other Urinary Catheter Date of Insertion: 12/19/22 Urinary Catheter Time of Insertion: 18:28 Data 12/22/22 04:20 12/22/22 04:20 Micro: Microbiology 12/19/22 01:20 Blood Culture - Preliminary Blood NEGATIVE TO DATE 12/19/22 01:18 Blood Culture - Preliminary Blood NEGATIVE TO DATE A&P Assessment and plan (1) Diverticulitis of large intestine with complication: (2) Perforated sigmoid colon: Plan status post exploratory laparotomy with Hilton's procedure for perforated diverticulitis IV antibiotics IV fluids Incentive spirometer Await return of bowel function Attestations Medical Necessity Statement*: Patient requires multiple more nights in the hospital for IV antibiotics and recovery after sepsis from perforated diverti culitis Coding Level of Care Code Acute Code for g [facility]wd Diagnoses Diverticulitis of large intestine with complication K57.32 Perforated sigmoid colon K63.1
[2022-12-21 16:59] LABS: Glucose Point of Care 82 mg/dL (70-110)
[2022-12-21] MEDS: pantoprazole 40 mg SDV IVP (17:15)
--- NOTE | 2022-12-21 21:03 | P.PN_ITS ---
Subjective Subjective: Today she is doing better. She passed small amount of flatus. Abdominal pain improving. Nausea improving. Vitals/I&O/Wt Last Vital Signs Temp 98.0 F 12/21/22 16:00 Pulse 89 12/21/22 16:00 Resp 18 12/21/22 16:00 BP 131/69 12/21/22 16:00 Pulse Ox 96 12/21/22 16:00 O2 Del Method 12/21/22 16:00 O2 Flow Rate 2 12/19/22 21:23 12/21/22 12/21/22 12/21/22 06:59 14:59 22:59 Intake Total 2435 / 4535 555 / 555 1050 / 1605 Output Total 500 / 2130 Balance 1935 / 2405 555 / 555 1050 / 1605 Weight last 48 hrs Weight 117.594 kg Weight 112.491 kg Physical Exam Const: COMMON NORMALS: patient oriented x3 and alert GENERAL APPEARANCE: cooperative NUTRITIONAL APPEARANCE: overweight ORIENTATION/CONSCIOUSNESS: Yes awake HENMT: COMMON NORMALS: oropharynx normal Neck/C-Spine: COMMON NORMALS: no JVD Resp: COMMON NORMALS: normal respiratory effort and clear to auscultation bilaterally AUSCULTATION: clear to auscultation bilaterally Cardio: COMMON NORMALS: no JVD, regular rhythm, S1 normal heart sound present, S2 normal heart sound present and No murmurs present (Cardio) RHYTHM: regular rhythm HEART SOUNDS: S1 normal heart sound present and S2 normal heart sound present GI: COMMON NORMALS: Soft to palpation AUSCULTATION: Yes Hypoactive bowel sounds present and Yes Other GI auscultation findings (BS present) PALPATION: Yes Soft to palpation and Yes Tenderness to palpation present (GI) Extremity: COMMON NORMALS: no joint enlargement and no pedal edema Neuro: COMMON NORMALS: patient oriented x3 and moves all extremities SENSORIUM/ORIENTATION: Yes alert Skin: COMMON NORMALS: no rashes or lesions noted GENERAL SKIN EXAM: no r ashes or lesions noted Urinary Catheter Management: Estrada: Cath Placed During This Visit: yes Reason for Continuing Indwelling Catheter: Other Urinary Catheter Date of Insertion: 12/19/22 Urinary Catheter Time of Insertion: 18:28 Data 12/21/22 04:50 12/21/22 04:50 Micro: Microbiology 12/19/22 01:20 Blood Culture - Preliminary Blood NEGATIVE TO DATE 12/19/22 01:18 Blood Culture - Preliminary Blood NEGATIVE TO DATE A&P Assessment and plan (1) Perforated sigmoid colon: Continues on bowel rest as per surgery. Continues with IVF. Empiric antibiotics. CBC appreciated, discussed with her. Leukocytosis using. Tachycardia resolved. Sepsis resolved. Blood culture reviewed, preliminary so far negative. While follow-up blood count after surgery, chemistry panel for reassessment of electrolytes, renal function while NPO, with IVF. Requested. Continue pain control, after receiving extra dose of IV pain medication. DVT prophylaxis. Follow-up CBC for follow-up of hemoglobin, WBC count. (2) Diverticulitis large intestine: As above. Qualifiers: Diverticulitis bleeding: unspecified bleeding status Diverticulitis complication: with perforation Qualified Code(s): K57.20 - Diverticulitis of large intestine with perforation and abscess without bleeding (3) Hyperkalemia: Potassium level reviewed, 6.1. Stop LR. Change fluids to NS. Recheck potassium requested. Monitor closely due to risk of severe hyperkalemia, arrhythmia. EKG requested, obtained. Computer read as atrial fibrillation, on my interpretation he does not A-fib, rather SR. Cardiac monitoring due to risk of arrhythmia. Low potassium diet once oral intake resumed. Plan Mild hyponatremia: Continue IV hydration. Recheck chemistry panel for sodium. Hyperglycemia: 141. Monitor blood glucose. Initially low oxygen saturation: Saturating well on room air. Initially concern regarding low oxygen saturation, however, appears was secondary to a faulty probe. She has denied any shortness of breath. Saturating in mid to high 90s on room air. No evidence of active pulmonary disease on my interpretation of the x-ray. Does have some chronic cardiomegaly. D-dimer results reviewed and unremarkable. Low probability of PE. History of staghorn stone: Denies recurrent UTIs. 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 Follows with urology Dr. Moss. Monitor renal function. Requested. Attestations Medical Necessity Statement*: Continue admission for assessment management following sigmoidectomy after sepsis with perforated sigmoid diverticulitis. Diagnoses Perforated sigmoid colon K63.1 Diverticulitis large intestine K57.20 Diverticulitis bleeding: unspecified bleeding status Diverticulitis complication: with perforation Hyperkalemia E87.5
[2022-12-21 21:46] LABS: Glucose Point of Care 99 mg/dL (70-110)
[2022-12-22] VITALS (7 sets, daily range): BP systolic 123–139; BP diastolic 74–80; PULSE 64–79; RESP 15–20; TEMP 36.7–36.9; O2SAT 93–97
[2022-12-22] MEDS: ondansetron 2 mg/ML SDV 2 mL 4 MG IVP (04:15)
[2022-12-22] MEDS: piperacillin-tazobactam 3.375 GM in sodium chloride 0.9% (plus) 50 ML IV ×3 (04:15→20:57)
[2022-12-22] MEDS: heparin 5,000 unit/mL INJ 1 mL 5000 UNIT SUBCUT ×2 (04:15→16:30)
[2022-12-22] MEDS: sodium chloride 0.9% 1,000 ML 100 ML IV ×3 (04:16→23:53)
[2022-12-22 04:40] LABS: Basophils # 0.1 10^3/uL (0.0-0.1); Basophils % 0.6 %; Eosinophils # 0.2 10^3/uL (0.0-0.8); Eosinophils % 1.6 %; Hematocrit 38.9 % (37.0-47.0); Hemoglobin 12.4 g/dL (11.5-15.3); Lymphocytes # 2.9 10^3/uL (0.8-4.8); Lymphocytes % 28.8 %; Mean Corpuscular HGB Conc 31.9 g/dL (30.0-36.0); Mean Corpuscular Hemoglobin 30.4 pg (28.0-34.0); Mean Corpuscular Volume 95.3 fl (81-99); Mean Platelet Volume 9.5 fL (7.4-10.4); Monocytes # 0.7 10^3/uL (0.2-0.9); Monocytes % 7.4 %; Neutrophils # 6.05 10^3/uL (1.8-7.7); Neutrophils % 60.9 %; Nucleated Red Blood Cells % 0 %; Platelet Count 234 10^3/cmm (130-400); Red Blood Count 4.08 10^6/uL (4.1-5.3); Red Cell Distribution Width 13.7 % (12.1-15.1)
[2022-12-22 04:56] LABS: Anion Gap 13.6 (5-19); Blood Urea Nitrogen 8 mg/dL (8-23); Calcium 7.8 mg/dL (8.5-10.5); Carbon Dioxide 24 mmol/L (22-29); Chloride 105 mmol/L (98-107); Glucose 94 mg/dL (65-115); Osmolality Calculated 286 mOsm/kg (285-295); Potassium 3.6 mmol/L (3.5-5.1); Sodium 139 mmol/L (136-145)
[2022-12-22 07:04] LABS: Glucose Point of Care 95 mg/dL (70-110)
[2022-12-22] MEDS: acetaminophen 325 mg Tablet 650 MG PO (07:32)
--- NOTE | 2022-12-22 11:09 | PC.SOCIAL ---
IMM Update pg 2 of IMM updated and reviewed w/ patient. Copy provided and Copy dated, initialed and placed in chart.
[2022-12-22 11:56] LABS: Glucose Point of Care 90 mg/dL (70-110)
--- NOTE | 2022-12-22 14:38 | PM.PN ---
Subjective Subjective: He is having minimal nausea. No vomiting. Pain is improving. Discussion with RN she had some bloody output into her colostomy. Vitals/I&O/Wt Last Vital Signs Temp 98.1 F 12/22/22 11:05 Pulse 64 12/22/22 11:05 Resp 15 12/22/22 11:05 BP 123/77 12/22/22 11:05 Pulse Ox 95 12/22/22 11:05 O2 Del Method 12/22/22 04:00 O2 Flow Rate 2 12/19/22 21:23 12/21/22 12/22/22 12/22/22 22:59 06:59 14:59 Intake Total 1050 / 1605 881.667 / 2486.667 50 / 50 Output Total 350 / 350 300 / 300 Balance 700 / 1255 881.667 / 2136.667 -250 / -250 Weight last 48 hrs Weight 117.48 kg Weight 117.594 kg Physical Exam Const: COMMON NORMALS: patient oriented x3 and alert GENERAL APPEARANCE: cooperative NUTRITIONAL APPEARANCE: overweight ORIENTATION/CONSCIOUSNESS: Yes awake HENMT: COMMON NORMALS: oropharynx normal Neck/C-Spine: COMMON NORMALS: no JVD Resp: COMMON NORMALS: normal respiratory effort and clear to auscultation bilaterally AUSCULTATION: clear to auscultation bilaterally Cardio: COMMON NORMALS: no JVD, regular rhythm, S1 normal heart sound present, S2 normal heart sound present and No murmurs present (Cardio) RHYTHM: regular rhythm HEART SOUNDS: S1 normal heart sound present and S2 normal heart sound present GI: COMMON NORMALS: Soft to palpation AUSCULTATION: Yes Hypoactive bowel sounds present and Yes Other GI auscultation findings (BS present) PALPATION: Yes Soft to palpation and Yes Tenderness to palpation present (GI) Extremity: COMMON NORMALS: no joint enlargement and no pedal edema Neuro: COMMON NORMALS: patient oriented x3 and moves all extremities SENSORIUM/ORIENTATION: Yes alert Skin: COMMON NORMALS: no rashes or lesions noted GENERAL SKIN EXAM: no rashes or lesions noted Urinary Catheter Management: Estrada: Cath Placed During This Visit: yes Reason for Continuing Indwelling Catheter: Other Urinary Catheter Date of Insertion: 12/19/22 Urinary Catheter Time of Insertion: 18:28 Data 12/22/22 04:20 02/17/23 04:20 A&P Assessment and plan (1) Perforated sigmoid colon: Nausea improving. No vomiting. Passing some flatus. Did have some bloody output reported into colostomy. Surgery note reviewed. Awaiting return of bowel function. Continues with IVF while n.p.o. For now continue empiric antibiotics. CBC appreciated, discussed with her. Leukocytosis resolved. Tachycardia resolved. Sepsis resolved. Blood culture reviewed, remains preliminary, negative. Follow-up sodium, potassium, acid-base balance and renal function while NPO/IVF. With some bloody output follow-up CBC requested. Up ad pedro. Activity adjusted. Discussed with surgery. (2) Diverticulitis large intestine: As above. Qualifiers: Diverticulitis bleeding: unspecified bleeding status Diverticulitis complication: with perforation Qualified Code(s): K57.20 - Diverticulitis of large intestine with perforation and abscess without bleeding (3) Hyperkalemia: Potassium level reviewed. Hyperkalemia resolved with change in fluid. Potassium 3.6. Follow-up potassium requested. Depending on levels may consider low potassium diet once oral intake resumed. Plan Mild hyponatremia: Sodium 139 today. Hyponatremia resolved. Continue IV hydration. Recheck chemistry panel for sodium. Hyperglycemia: Glucose reviewed. Hyperglycemia improved. Monitor blood glucose while n.p.o. Initially low oxygen saturation: Saturating well on room air. Initially concern regarding low oxygen saturation, however, appears was secondary to a faulty probe. She has denied any shortness of breath. Saturating in mid to high 90s on room air. No evidence of active pulmonary disease on my interpretation of the x-ray. Does have some chronic cardiomegaly. D-dimer results reviewed and unremarkable. Low probability of PE. History of staghorn stone: Denies recurrent UTIs. 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 Follows with urology Dr. Moss. Monitor renal function. Requested. Attestations Medical Necessity Statement*: Continue admission for assessment management following sigmoidectomy after sepsis with perforated sigmoid diverticulitis. Diagnoses Perforated sigmoid colon K63.1 Diverticulitis large intestine K57.20 Diverticulitis bleeding: unspecified bleeding status Diverticulitis complication: with perforation Hyperkalemia E87.5
--- NOTE | 2022-12-22 15:32 | P.PN_ITS ---
Subjective Subjective: Patient seen and examined. Her ostomy leaked all over her midline incision today. Ostomy is producing Vitals/I&O/Wt Last Vital Signs Temp 98.4 F 12/23/22 04:00 Pulse 61 12/23/22 05:45 Resp 16 12/23/22 04:00 BP 130/77 12/23/22 04:00 Pulse Ox 95 12/23/22 04:00 O2 Del Method 12/23/22 04:00 O2 Flow Rate 2 12/19/22 21:23 12/22/22 12/23/22 12/23/22 22:59 06:59 14:59 Intake Total 50 / 1100 1458.333 / 2558.333 Output Total 338 / 638 800 / 1438 Balance -288 / 462 658.333 / 1120.333 Weight last 48 hrs Weight 259 lb Weight 259 lb Physical Exam Narrative: General: No acute distress, awake alert and oriented x3 Abdomen: Soft, mildly distended, appropriately tender to palpation, no guarding rebound or masses Ostomy: [place] and patent. Producing stool and flatus Incision intact without erythema or exudate Drain serosanguineous Urinary Catheter Management: Estrada: Cath Placed During This Visit: yes Reason for Continuing Indwelling Catheter: Other Urinary Catheter Date of Insertion: 12/19/22 Urinary Catheter Time of Insertion: 18:28 Data 12/23/22 03:40 12/23/22 03:40 A&P Assessment and plan (1) Diverticulitis of large intestine with complication: (2) Perforated sigmoid colon: Plan status post exploratory laparotomy with Hilton's procedure for perforated diverticulitis IV antibiotics IV fluids Incentive spirometer Clear liquid diet. Likely regular diet and discharge home tomorrow Attestations Medical Necessity Statement*: Patient requires 1 more night in the hospital for recovery after Hilton's procedure for perforated diverticulitis Coding Level of Care Code Acute Code for [facility] Diagnoses Diverticulitis of large intestine with complication K57.32 Perforated sigmoid colon K63.1
[2022-12-22] MEDS: pantoprazole 40 mg SDV IVP (16:29)
[2022-12-22 17:56] LABS: Glucose Point of Care 83 mg/dL (70-110)
--- NOTE | 2022-12-22 19:45 | PC.NURSE ---
Patients Ostomy has been leaking. Patient stated Dr. Berg came in and stated everything looked good. This nurse changed ostomy, midline dressing and ANNA drain dressing. Dr. Berg came in later and stated to take the midline dressing off due to possible contamination due to leaking ostomy.
[2022-12-22 22:43] LABS: Glucose Point of Care 122 mg/dL (70-110)
[2022-12-23] VITALS (8 sets, daily range): BP systolic 121–134; BP diastolic 68–82; PULSE 57–67; RESP 16–18; TEMP 36.6–36.9; O2SAT 95–99; BMI 43.1
[2022-12-23] MEDS: acetaminophen 325 mg Tablet 650 MG PO (04:01)
[2022-12-23] MEDS: heparin 5,000 unit/mL INJ 1 mL 5000 UNIT SUBCUT ×2 (04:01→16:30)
[2022-12-23] MEDS: piperacillin-tazobactam 3.375 GM in sodium chloride 0.9% (plus) 50 ML IV ×3 (04:02→21:46)
[2022-12-23 04:39] LABS: Basophils # 0.1 10^3/uL (0.0-0.1); Basophils % 0.7 %; Eosinophils # 0.3 10^3/uL (0.0-0.8); Eosinophils % 3.6 %; Hematocrit 37.6 % (37.0-47.0); Hemoglobin 12.1 g/dL (11.5-15.3); Lymphocytes # 2.5 10^3/uL (0.8-4.8); Lymphocytes % 27.7 %; Mean Corpuscular HGB Conc 32.2 g/dL (30.0-36.0); Mean Corpuscular Hemoglobin 30.9 pg (28.0-34.0); Mean Corpuscular Volume 96.2 fl (81-99); Mean Platelet Volume 9.7 fL (7.4-10.4); Monocytes # 0.7 10^3/uL (0.2-0.9); Monocytes % 8.2 %; Neutrophils # 5.24 10^3/uL (1.8-7.7); Neutrophils % 58.8 %; Nucleated Red Blood Cells % 0 %; Platelet Count 259 10^3/cmm (130-400); Red Blood Count 3.91 10^6/uL (4.1-5.3); Red Cell Distribution Width 13.5 % (12.1-15.1); White Blood Count 8.9 10^3/uL (4.0-10.0)
[2022-12-23 05:04] LABS: Anion Gap 9.3 (5-19); Blood Urea Nitrogen 7 mg/dL (8-23); Carbon Dioxide 26 mmol/L (22-29); Chloride 102 mmol/L (98-107); Glucose 96 mg/dL (65-115); Osmolality Calculated 276 mOsm/kg (285-295); Potassium 3.3 mmol/L (3.5-5.1); Sodium 134 mmol/L (136-145)
[2022-12-23 06:29] LABS: Glucose Point of Care 105 mg/dL (70-110)
--- NOTE | 2022-12-23 07:02 | PC.NURSE ---
Day shift nurse 12/22/[address] Berg gave verbal order to advance diet to clear liquid. Patient has tolerated well this shift.
--- NOTE | 2022-12-23 10:39 | P.PN_ITS ---
Subjective Subjective: Patient seen and examined. Ostomy is producing. She reports that her family is unable to pick her up today Vitals/I&O/Wt Last Vital Signs Temp 97.9 F 12/23/22 08:00 Pulse 57 L 12/23/22 08:00 Resp 16 12/23/22 08:00 BP 121/78 12/23/22 08:00 Pulse Ox 96 12/23/22 08:00 O2 Del Method 12/23/22 08:00 O2 Flow Rate 2 12/19/22 21:23 12/22/22 12/23/22 12/23/22 22:59 06:59 14:59 Intake Total 50 / 1100 1458.333 / 2558.333 Output Total 338 / 638 800 / 1438 Balance -288 / 462 658.333 / 1120.333 Weight last 48 hrs Weight 259 lb Weight 259 lb Physical Exam Narrative: General: No acute distress, awake alert and oriented x3 Abdomen: Soft, mildly distended, appropriately tender to palpation, no guarding rebound or masses Ostomy: [place] and patent. Producing stool and flatus Incision intact without erythema or exudate Drain serosanguineous Urinary Catheter Management: Estrada: Cath Placed During This Visit: yes Reason for Continuing Indwelling Catheter: Other Urinary Catheter Date of Insertion: 12/19/22 Urinary Catheter Time of Insertion: 18:28 Data 12/23/22 03:40 12/23/22 03:40 A&P Assessment and plan (1) Diverticulitis of large intestine with complication: (2) Perforated sigmoid colon: Plan status post exploratory laparotomy with Hilton's procedure for perforated diverticulitis IV antibiotics IV fluids Incentive spirometer Regular diet and discharge home tomorrow Attestations Medical Necessity Statement*: per primary Coding Level of Care Code Acute Code for [facility] Diagnoses Diverticulitis of large intestine with complication K57.32 Perforated sigmoid colon K63.1
[2022-12-23] MEDS: pantoprazole 40 mg SDV IVP (16:30)
--- NOTE | 2022-12-23 20:21 | P.PN_ITS ---
Subjective Subjective: She is unable to return home as her family is unavailable today, plans made for tomorrow. She is otherwise doing better. Some pain in left lower quadrant but with improvement. She is looking forward to her upgraded diet. She does need additional ostomy care education. Vitals/I&O/Wt Last Vital Signs Temp 97.9 F 12/23/22 16:00 Pulse 63 12/23/22 16:00 Resp 16 12/23/22 16:00 BP 134/76 12/23/22 16:00 Pulse Ox 99 12/23/22 16:00 O2 Del Method 12/23/22 16:00 O2 Flow Rate 2 12/19/22 21:23 12/23/22 12/23/22 12/23/22 06:59 14:59 22:59 Intake Total 1458.333 / 2558.333 290 / 290 1250 / 1540 Output Total 800 / 1438 600 / 600 Balance 658.333 / 1120.333 -310 / -310 1250 / 940 Weight last 48 hrs Weight 117.48 kg Weight 117.48 kg Physical Exam Narrative: Up in the chair. Const: COMMON NORMALS: patient oriented x3 and alert GENERAL APPEARANCE: co operative NUTRITIONAL APPEARANCE: overweight ORIENTATION/CONSCIOUSNESS: Yes awake HENMT: COMMON NORMALS: oropharynx normal Neck/C-Spine: COMMON NORMALS: no JVD Resp: COMMON NORMALS: normal respiratory effort and clear to auscultation bilaterally AUSCULTATION: clear to auscultation bilaterally Cardio: COMMON NORMALS: no JVD, regular rhythm, S1 normal heart sound present, S2 normal heart sound present and No murmurs present (Cardio) RHYTHM: regular rhythm HEART SOUNDS: S1 normal heart sound present and S2 normal heart sound present GI: COMMON NORMALS: Soft to palpation AUSCULTATION: Yes Hypoactive bowel sounds present and Yes Other GI auscultation findings (BS present) PALPATION: Yes Soft to palpation and Yes Tenderness to palpation present (GI) OTHER: Noted ostomy output. No blood. Extremity: COMMON NORMALS: no joint enlargement and no pedal edema Neuro: COMMON NORMALS: patient oriented x3 and moves all extremities SENSORIUM/ORIENTATION: Yes alert Skin: COMMON NORMALS: no rashes or lesions noted GENERAL SKIN EXAM: no rashes or lesions noted Urinary Catheter Management: Estrada: Cath Placed During This Visit: yes Reason for Continuing Indwelling Catheter: Other Urinary Catheter Date of Insertion: 12/19/22 Urinary Catheter Time of Insertion: 18:28 Data 12/23/22 03:40 12/23/22 03:40 A&P Assessment and plan (1) Perforated sigmoid colon: Still some pain, otherwise symptoms improving. Ostomy producing output. Appreciate surgical recommendations, note reviewed, diet is advanced. Discussed with surgery. She does need additional ostomy education and nursing and case management are working on that. She otherwise did not have support to return home today, with plans to return home tomorrow. CBC reviewed and is doing well. Will not request any further blood test. Reviewed chemistry and noted hypokalemia. We will give a dose of potassium. Follow-up BMP. IVF stopped. Natalie Avina. (2) Diverticulitis large intestine: As above. Qualifiers: Diverticulitis bleeding: unspecified bleeding status Diverticulitis complication: with perforation Qualified Code(s): K57.20 - Diverticulitis of large intestine with perforation and abscess without bleeding (3) Hyperkalemia: Now hypokalemia as above Plan Mild hyponatremia: Resolved. Hyperglycemia: Improved. Initially low oxygen saturation: Saturating well on room air. Initially concern regarding low oxygen saturation, however, appears was secondary to a faulty probe. She has denied any shortness of breath. Saturating in mid to high 90s on room air. No evidence of active pulmonary disease on my interpretation of the x-ray. Does have some chronic cardiomegaly. D-dimer results reviewed and unremarkable. Low probability of PE. History of staghorn stone: Denies recurrent UTIs. 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 Follows with urology Dr. Moss. Monitor renal function. Requested. Attestations Medical Necessity Statement*: Pending discharge arrangements, education of ostomy care to allow return home. Diagnoses Perforated sigmoid colon K63.1 Diverticulitis large intestine K57.20 Diverticulitis bleeding: unspecified bleeding status Diverticulitis complication: with perforation Hyperkalemia E87.5
[2022-12-23] MEDS: potassium chloride ER 20 mEq Tablet PO (21:46)
[2022-12-24 00:13] VITALS: BP 131/85; PULSE 69; RESP 18; TEMP 36.6; O2SAT 95
[2022-12-24 04:44] LABS: Anion Gap 11.4 (5-19); Blood Urea Nitrogen 6 mg/dL (8-23); Calcium 8.3 mg/dL (8.5-10.5); Carbon Dioxide 25 mmol/L (22-29); Chloride 104 mmol/L (98-107); Glomerular Filtration Rate 125.9 mL/min (90-130); Glucose 118 mg/dL (65-115); Osmolality Calculated 283 mOsm/kg (285-295); Potassium 3.4 mmol/L (3.5-5.1); Sodium 137 mmol/L (136-145)
[2022-12-24] MEDS: heparin 5,000 unit/mL INJ 1 mL 5000 UNIT SUBCUT (04:59)
[2022-12-24] MEDS: piperacillin-tazobactam 3.375 GM in sodium chloride 0.9% (plus) 50 ML IV (04:59)
[2022-12-24] MEDS: acetaminophen 325 mg Tablet 650 MG PO (05:01)
[2022-12-24 05:41] VITALS: BP 127/71; PULSE 77; RESP 16; TEMP 36.7; O2SAT 97
[2022-12-24 06:00] VITALS: PULSE 69
[2022-12-24 06:01] VITALS: RESP 16
[2022-12-24] MEDS: HYDROmorphone 1 mg/mL INJ 1 mL IVP ×2 (06:01→11:54)
[2022-12-24 06:38] LABS: Glucose Point of Care 116 mg/dL (70-110)
[2022-12-24 08:00] VITALS: BP 130/81; PULSE 63; RESP 17; TEMP 36.6; O2SAT 95
[2022-12-24] MEDS: ondansetron 2 mg/ML SDV 2 mL 4 MG IVP (08:43)
[2022-12-24] MEDS: potassium chloride ER 20 mEq Tablet PO (09:05)
--- NOTE | 2022-12-24 10:17 | P.DS_ITS ---
Discharge Providers Date of Admission: 12/19/22 17:55 Date of Discharge: December 24, 2022 Attending Provider at Admission: Willian Berg DO Attending Provider at Discharge: Thierno Alvarado Primary Care Provider: STEVEN Tillman Diagnoses at Discharge Discharge Diagnosis (1) Perforated sigmoid colon: Status: Acute (2) Diverticulitis large intestine: Status: Acute Qualifiers: Diverticulitis bleeding: unspecified bleeding status Diverticulitis complication: with perforation Qualified Code(s): K57.20 - Diverticulitis of large intestine with perforation and abscess without bleeding (3) Hyperkalemia: Status: Acute Reason for Visit Reason for Visit: possible urogenital Hospital Course Hospital Course Pleasant 62-year-old lady with history of left-sided staghorn calculus with attempted surgical extraction, iatrogenic arterial pseudoaneurysm, was admitted after presenting with lower abdominal pain, with leukocytosis, sinus tachycardia on presentation with sepsis, with finding of moderate amount of free intraperitoneal air. On imaging finding of acute sigmoid diverticulitis. She received Zosyn, was taken urgently for closure laparotomy, with finding of perforated sigmoid diverticulitis, underwent Lashell procedure. Continued on bowel rest, IV fluids, empiric UTI coverage with Zosyn awaiting return of bowel function. Mild hyponatremia during hospitalization resolved. Initially transiently with hyperkalemia, this improvement subsequently mildly hypokalemic requiring potassium replacement. Please follow-up levels. She is otherwise doing better. Bowel function resumed, ostomy is producing. She is tolerating regular diet. Pain is improving. She is ambulating. She received education on ostomy care and with further education forthcoming with home health follow-up. Physical Exam Narrative: Up in the chair. Const: COMMON NORMALS: patient oriented x3 and alert GENERAL APPEARANCE: cooperative NUTRITIONAL APPEARANCE: overweight ORIENTATION/CONSCIOUSNESS: Yes awake HENMT: COMMON NORMALS: oropharynx normal Neck/C-Spine: COMMON NORMALS: no JVD Resp: COMMON NORMALS: normal respiratory effort and clear to auscultation bilaterally AUSCULTATION: clear to auscultation bilaterally Cardio: COMMON NORMALS: no JVD, regular rhythm, S1 normal heart sound present, S2 normal heart sound present and No murmurs present (Cardio) RHYTHM: regular rhythm HEART SOUNDS: S1 normal heart sound present and S2 normal heart sound present GI: COMMON NORMALS: Soft to palpation AUSCULTATION: Yes Hypoactive bowel sounds present and Yes Other GI auscultation findings (BS present) PALPATION: Yes Soft to palpation and Yes Tenderness to palpation present (GI) OTHER: Noted ostomy output. No blood. Extremity: COMMON NORMALS: no joint enlargement and no pedal edema Neuro: COMMON NORMALS: patient oriented x3 and moves all extremities SENSORIUM/ORIENTATION: Yes alert Skin: COMMON NORMALS: no rashes or lesions noted GENERAL SKIN EXAM: no rashes or lesions noted Urinary Catheter Management: Estrada: Cath Placed During This Visit: yes, but has since been removed by the nurse Reason for Continuing Indwelling Catheter: Decision to DC Catheter Urinary Catheter Date of Insertion: 12/19/22 Urinary Catheter Time of Insertion: 18:28 Date Urinary Catheter Removed: 12/23/22 Time Urinary Catheter Discontinued: 12:00 Discharge Data Studies Completed and Pending Completed Studies During Hospitalization Category Date Time Status CT abdomen pelvis w con* [id number] Urgent Cat Scan 12/19/22 13:08 Completed XR chest 1V portable [id number] Urgent Exams 12/19/22 12:12 Completed Pathology: Surgical [PTH] Routine Pth 12/19/22 19:58 Completed Pending at discharge Category Date Time Status Blood Culture Stat Lab 12/19/22 01:18 Results Radiology Impressions Chest X-Ray 12/19/22 12:12 IMPRESSION: Evidence of active cardiopulmonary disease. Abdomen/Pelvis CT 12/19/22 13:08 IMPRESSION: 1. Moderate amount of free intraperitoneal air. 2. Segment of acute sigmoid diverticulitis without abscess. There are small adjacent foci of free air. This is probably the site of the perforation. 3. There is additional free air closely associated with the antrum of the stomach. No wall thickening. Suspect this is incidental and the free air is related to the sigmoid perforation. 4. Prior cholecystectomy. Notified Ramónshannon Key MD at 12/19/2022 2:24 PM. Laboratory Results WBC 8.9 10^3/uL (4.0-10.0) 12/23/22 03:40 RBC 3.91 10^6/uL (4.1-5.3) L 12/23/22 03:40 Hgb 12.1 g/dL (11.5-15.3) 12/23/22 03:40 Hct 37.6 % (37.0-47.0) 12/23/22 03:40 MCV 96.2 fl (81-99) 12/23/22 03:40 MCH 30.9 pg (28.0-34.0) 12/23/22 03:40 MCHC 32.2 g/dL (30.0-36.0) 12/23/22 03:40 RDW 13.5 % (12.1-15.1) 12/23/22 03:40 Plt Count 259 10^3/cmm (130-400) 12/23/22 03:40 MPV 9.7 fL (7.4-10.4) 12/23/22 03:40 Neut % (Auto) 58.8 % 12/23/22 03:40 Lymph % (Auto) 27.7 % 12/23/22 03:40 Giles % (Auto) 8.2 % 12/23/22 03:40 Eos % (Auto) 3.6 % 12/23/22 03:40 Baso % (Auto) 0.7 % 12/23/22 03:40 Neut # (Auto) 5.24 10^3/uL (1.8-7.7) 12/23/22 03:40 Lymph # (Auto) 2.5 10^3/uL (0.8-4.8) 12/23/22 03:40 Giles # (Auto) 0.7 10^3/uL (0.2-0.9) 12/23/22 03:40 Eos # (Auto) 0.3 10^3/uL (0.0-0.8) 12/23/22 03:40 Baso # (Auto) 0.1 10^3/uL (0.0-0.1) 12/23/22 03:40 Nucleated RBC % (auto) 0 % 12/23/22 03:40 Nucleated RBCs # 0.0 /100WBC 12/23/22 03:40 D-Dimer 0.51 ug/mIFEU (0-0.59) 12/19/22 11:54 Specimen Type Arterial 12/19/22 14:14 Sample Site Radial, right 12/19/22 14:14 ABG pH 7.50 (7.35-7.45) H 12/19/22 14:14 ABG pCO2 29.7 mmHg (35-45) L 12/19/22 14:14 ABG pO2 82.8 mmHg (80.0-100.0) 12/19/22 14:14 ABG HCO3 23.3 mmol/L (22-26) 12/19/22 14:14 ABG O2 Saturation 97.4 12/19/22 14:14 ABG Base Excess 1.3 mmol/L (-2.0-2.0) 12/19/22 14:14 Jonathan Test Pos 12/19/22 14:14 A-a O2 Gradient 3.5 mmHg (5-10) L 12/19/22 14:14 Hematocrit 49.8 % (37-47) H 12/19/22 14:14 Hgb O2 Saturation 96.3 % (95-100) 12/19/22 14:14 Carboxyhemoglobin 0.8 %THgb (0.4-20.1) 12/19/22 14:14 Methemoglobin 0.4 % (0.4-1.5) 12/19/22 14:14 Total Hemoglobin 16.3 g/dL (12-16) H 12/19/22 14:14 Sodium 137.0 mmol/L (131-143) 12/19/22 14:14 Potassium 3.9 mmol/L (3.5-5.0) 12/19/22 14:14 Glucose 141.0 mg/dL (70-115) H 12/19/22 14:14 Ionized Calcium 1.2 mmol/L (1.1-1.4) 12/19/22 14:14 O2 Delivery Device Room air 12/19/22 14:14 FiO2 21.0 % 12/19/22 14:14 Optics Manufacturing Technician ID glc 12/19/22 14:14 Sodium 137 mmol/L (136-145) 12/24/22 03:05 Potassium 3.4 mmol/L (3.5-5.1) L 12/24/22 03:05 Chloride 104 mmol/L (98-107) 12/24/22 03:05 Carbon Dioxide 25 mmol/L (22-29) 12/24/22 03:05 Anion Gap 11.4 (5-19) 12/24/22 03:05 BUN 6 mg/dL (8-23) L 12/24/22 03:05 Creatinine 0.5 mg/dL (0.5-0.9) 12/24/22 03:05 GFR Calculation 125.9 mL/min (90-130) 12/24/22 03:05 Glucose 118 mg/dL (65-115) H 12/24/22 03:05 POC Glucose 116 mg/dL (70-110) H 12/24/22 06:23 Calculated Osmolality 283 mOsm/kg (285-295) L 12/24/22 03:05 Lactic Acid 1.1 mmol/L (0.5-2.2) 12/19/22 01:18 Calcium 8.3 mg/dL (8.5-10.5) L 12/24/22 03:05 Urine Color Yellow (Yellow) 12/19/22 11:08 Urine Appearance Clear (CLEAR) 12/19/22 11:08 Urine pH 7 (5-7) 12/19/22 11:08 Ur Specific [place] 1.010 (1.005-1.030) 12/19/22 11:08 Urine Protein Neg (Negative) 12/19/22 11:08 Urine Glucose (UA) Norm (Normal) 12/19/22 11:08 Urine Ketones 1+ (Negative) H 12/19/22 11:08 Urine Blood Neg (Negative) 12/19/22 11:08 Urine Nitrate Negative (Negative) 12/19/22 11:08 Urine Bilirubin Neg (Negative) 12/19/22 11:08 Urine Urobilinogen Norm mg/dL (Negative) 12/19/22 11:08 Ur Leukocyte Esterase Negative (Negative) 12/19/22 11:08 Urine RBC 0-4 /hpf (0-2) H 12/19/22 11:08 Urine WBC 0-4 /hpf (0-5) H 12/19/22 11:08 Ur Squamous Epith Cells 0-4 /hpf (0-5) H 12/19/22 11:08 Amorphous Sediment Trace /hpf 12/19/22 11:08 Urine Bacteria 2+ /hpf (NONE) H 12/19/22 11:08 Urine Mucus Trace /hpf 12/19/22 11:08 Vitals Last Vital Signs Temp 97.9 F 12/24/22 08:00 Pulse 63 12/24/22 08:00 Resp 17 12/24/22 08:00 BP 130/81 12/24/22 08:00 Pulse Ox 95 12/24/22 08:00 O2 Del Method 12/24/22 08:00 O2 Flow Rate 2 12/19/22 21:23 Discharge Plan Discharge Patient Disposition: Home Health Service Condition: Stable Prescriptions: New amoxicillin-pot clavulanate 875-125 mg tablet 1 tab PO BID 14 Days Qty: 28 0RF acetaminophen 325 mg Tablet 650 mg PO Q6H PRN (Reason: Mild/Mod Pain Or Temp >/= 101) Qty: 60 3RF hydrocodone-acetaminophen 5-300 mg tablet 1 tab PO BID PRN (Reason: pain) Qty: 10 0RF Continued cholecalciferol (vitamin D3) 125 mcg (5,000 unit) capsule 125 mcg PO DAILY Qty: 90 1RF Hold Instructions: Dose Change wzqwwgw-vbll-ztteb-oreg-capryl 100 mg-150 mg- 50 mg-150 mg Capsule 1 cap PO DAILY Discharge Orders: Discharge Order (Routine); Ordered 12/24/22 Ordered By: Thierno Alvarado Referrals: Willian Berg DO [Physician] - 7-10 days (Please call Dr. Berg's office Sunday morning to schedule a follow up appointment within 1 week. ) Genie Bello FNP [Primary Care Provider] - (Please call sunday to schedule your follow up appointment with Genie Bello.) Discharge Diet: Advance as tolerated Discharge Activity: Increase activity as tolerated Patient Instructions: Hydrocodone/Acetaminophen (By mouth), Amoxicillin/Clavulanate Potassium (By mouth), Colostomy Care (GEN), Potassium Content of Foods List (GEN), Hypokalemia (GEN), Hyperkalemia (GEN), Opioid Safety Activity Restrictions/Additional Instructions: Continue ostomy care as per instructions. Potassium was initially elevated, now it is on the low side. Include foods that contain potassium, follow-up with your primary doctor for potassium recheck. Please follow-up with your primary doctor regarding glucose elevation after your acute condition resolves, consideration of testing for worsening of diabetes. Discharge Attestations Time Spent in Discharge Care*: greater than 30 min Quality Metrics Clinical Quality Measures [ No reported AMI, CVA or VTE this stay] Coding Level of Care Code Acute Code for Chg Fwd Diagnoses Perforated sigmoid colon K63.1 Diverticulitis large intestine K57.20 Diverticulitis bleeding: unspecified bleeding status Diverticulitis complication: with perforation Hyperkalemia E87.5
[2022-12-24 11:30] LABS: Glucose Point of Care 182 mg/dL (70-110)
[2022-12-24 12:00] VITALS: BP 142/83; PULSE 62; RESP 17; TEMP 36.6; O2SAT 95
--- NOTE | 2022-12-24 12:15 | PC.NURSE ---
ANNA Drain Removal: ANNA drain removed per Dr. Berg verbal/telephone order. Drain intact upon removal. No s/s bleeding. Island dressing applied to insertion site. Pt tolerated well.
== END 2022-12-24 15:04 | disposition home health service (06) | DRG 330 ==
LOC: ER 15:06 → OR 15:09 → MEDSURG 18:18
PROVIDERS: Admitting Provider Surgery; Emergency Provider Family Medicine; PCP Nurse Practitioner Family; Visit Provider Internal Medicine
PROC: 0DTN0ZZ Resection of Sigmoid Colon, Open Approach (ICD-10-PCS; CPT 49000; principal; 2022-12-19 16:00)
DX: K57.20 Diverticulitis of large intestine with perforation and abscess without bleeding (principal); E87.1 Hypo-osmolality and hyponatremia; E87.5 Hyperkalemia; N20.0 Calculus of kidney; M79.7 Fibromyalgia; I72.2 Aneurysm of renal artery; E11.65 Type 2 diabetes mellitus with hyperglycemia; I51.7 Cardiomegaly
CPT/HCPCS: 36415; 36416; 36600; 51702; 71045; 74177; 80048; 80051; 81001; 82330; 82805; 82962; 83605; 85025; 85378; 87040; 88309; 93005; 96365; 96372; 96374; 96376; 97116; 97161; 97165; 97530; 97535; 99285; A9281; C9113; J0131; J1100; J1170; J1644; J2250; J2270; J2405; J2543; J2704; J3010; J3490; J7030; J7120; Q9967

== ENCOUNTER → 2023-01-02 13:04 | Outpatient (BNVA) | payer MEDICARE, SELFPAY | PROVIDERS: PCP Nurse Practitioner Family; Visit Provider Surgery | DX: Z98.890 Other specified postprocedural states (principal) | CPT/HCPCS: 99024; 99203 ==

== ENCOUNTER → 2023-01-09 09:36 | Outpatient (BNVA) | payer MEDICARE, SELFPAY | PROVIDERS: PCP Nurse Practitioner Family; Visit Provider Surgery | DX: Z93.3 Colostomy status (principal); Z98.890 Other specified postprocedural states; D64.9 Anemia, unspecified; R53.83 Other fatigue; E55.9 Vitamin D deficiency, unspecified; K57.32 Diverticulitis of large intestine without perforation or abscess without bleeding | CPT/HCPCS: 80053; 82306; 85025; 99024 ==

== ENCOUNTER → 2023-02-07 15:23 | Outpatient (BNVA) | payer MEDICARE, SELFPAY | PROVIDERS: PCP Nurse Practitioner Family; Visit Provider Nurse Practitioner Family | DX: N39.0 Urinary tract infection, site not specified (principal) | CPT/HCPCS: 81000; 87086 ==

== ENCOUNTER → 2023-02-22 10:16 | Outpatient (BNVA) | payer MEDICARE, SELFPAY | PROVIDERS: PCP Nurse Practitioner Family; Visit Provider Nurse Practitioner Family | DX: R30.0 Dysuria (principal) | CPT/HCPCS: 81000; 87086 ==

== ENCOUNTER 2023-05-01 16:11 | Emergency (ER) | payer MEDICARE, SELFPAY ==
--- NOTE | 2023-05-01 16:13 | ECG_ITS ---
[facility] Test Date: 2023-05-01 Pat Name: Dipti Bansal Department: Room: Gender: Female Weight Reducing Technician: : 1960 Requested By: Emigdio Abreu Order Number: [id number] Richard MD: Ania Simpson M.D. Measurements Intervals [place] Rate: 81 P: 59 [place]: 175 QRS: -40 QRSD: 80 T: 29 QT: 366 QTc: 425 Interpretive Statements SINUS RHYTHM LEFT AXIS DEVIATION [QRS AXIS < -30] LOW QRS VOLTAGE IN PRECORDIAL LEADS [QRS DEFLECTION < 1.0 mV IN CHEST LEADS] Compared to ECG 12/21/2022 09:26:24 Left-axis deviation now present Atrial fibrillation no longer present Electronically Signed On 05-03-2023 10:03:26 CDT by Ania Simpson M.D. [email or web address] centerL[facility].[employer]/store/[id number]
[2023-05-01 16:40] LABS: Add Urine Microscopic? NO; Charge for UA Resulting for Rev
[2023-05-01 16:46] VITALS: BP 141/79; PULSE 85; RESP 16; TEMP 36.7; O2SAT 96; BMI 37.4
[2023-05-01 16:46] LABS: Bilirubin Urine Neg (Negative); Blood Urine Neg (Negative); Glucose Urine UA Norm (Normal); Ketones Urine Negative (Negative); Leukocyte Esterase Urine Negative (Negative); Nitrate Urine Negative (Negative); Protein Urine Neg (Negative); Specific Gravity, Urine 1.015 (1.005-1.030); Urine Appearance Clear (CLEAR); Urine Color Light yellow (Yellow); Urobilinogen Urine Norm (Negative); pH Urine 6 (5-7)
[2023-05-01 16:49] LABS: Basophils # 0.1 10^3/uL (0.0-0.1); Basophils % 0.7 %; Eosinophils # 0.2 10^3/uL (0.0-0.8); Eosinophils % 2.2 %; Hematocrit 46.9 % (37.0-47.0); Hemoglobin 15.1 g/dL (11.5-15.3); Lymphocytes # 3.6 10^3/uL (0.8-4.8); Lymphocytes % 35.4 %; Mean Corpuscular HGB Conc 32.2 g/dL (30.0-36.0); Mean Corpuscular Hemoglobin 29.1 pg (28.0-34.0); Mean Corpuscular Volume 90.4 fl (81-99); Mean Platelet Volume 9.3 fL (7.4-10.4); Monocytes # 0.8 10^3/uL (0.2-0.9); Monocytes % 7.3 %; Neutrophils # 5.55 10^3/uL (1.8-7.7); Neutrophils % 54.1 %; Nucleated Red Blood Cells % 0 %; Platelet Count 333 10^3/cmm (130-400); Red Blood Count 5.19 10^6/uL (4.1-5.3); Red Cell Distribution Width 13.5 % (12.1-15.1); White Blood Count 10.3 10^3/uL (4.0-10.0)
[2023-05-01 17:03] LABS: INR 0.87 (0.8-1.2)
[2023-05-01 17:09] LABS: Troponin(5th) Baseline 6 ng/L (0-10)
[2023-05-01 17:10] LABS: Alanine Aminotransferase 35 U/L (0-33); Albumin Level 4.2 g/dL (3.5-5.2); Alkaline Phosphatase 115 U/L (35-105); Anion Gap 15.8 (5-19); Aspartate Amino Transferase 28 U/L (0-32); Blood Urea Nitrogen 12 mg/dL (8-23); Calcium 9.7 mg/dL (8.5-10.5); Carbon Dioxide 27 mmol/L (22-29); Chloride 100 mmol/L (98-107); Globulin 3.2 g/dL (1.3-4.6); Glucose 129 mg/dL (65-115); Osmolality Calculated 289 mOsm/kg (285-295); Potassium 3.8 mmol/L (3.5-5.1); Sodium 139 mmol/L (136-145); Total Bilirubin 0.3 mg/dL (0.15-1.2); Total Protein 7.4 g/dL (6.6-8.7)
--- NOTE | 2023-05-01 17:10 | W.ED.HA ---
HPI - Headache General: Chief Complaint: Headache Stated Complaint: Headpain, Painin shoulder and arm, Weakness Time Seen by Provider: 05/01/23 17:07 History of Present Illness: 62-year-old female comes in today for complaints of headache across the forehead. Patient reports no prior headaches similar to this. Patient had recently had a stomal reversal. Patient reports no fever or chills. Patient takes no routine medications. Patient denies any vomiting. Patient reports about 4 days ago she had some neck and shoulder discomfort that seemed to resolve. Patient reports today she was watching TV when she started having right-sided shoulder and neck pain that then started having headache with it. Patient reports some improvement in headaches since arriving to the ER but continues to have discomfort. Patient appears nontoxic. Associated symptoms: Deny chest pain or fever(s) Review of Systems General: Reports: 10 or more systems reviewed and unremarkable except in HPI and below Const: Denies: fever(s) Card: Denies: chest pain Resp: Denies: dyspnea Neuro: Reports: headache(s) PFSH ED PFSH: Medical History Chest pain Diabetes Diverticulitis large intestine Diverticulitis of large intestine with complication Fibromyalgia Perforated sigmoid colon Renal artery pseudoaneurysm Staghorn renal calculus Surgical History H/O: hysterectomy History of exploratory laparotomy with Hilton's procedure History of kidney surgery Hx of cholecystectomy Family History Mother Cancer lung cancer Lung disease Family/Other Diabetes paternal side of the family Lung disease maternal Denies family history of CAD (coronary artery disease) Hypertension Stroke Social History Smoking and tobacco status: never smoked Alcohol intake: never Substance/Drug Use: never Adopted: No Caregiver/support person: No Lives independently: Yes Household members: none Marital status: / service: No Current occupational status: other Details: widows disability Do you think of yourself as: Straight/Heterosexual Current gender identity: Female Physical Exam Const: COMMON NORMALS: alert HENMT: COMMON NORMALS: normocephalic HEAD & SCALP: normocephalic Neck/C-Spine: COMMON NORMALS: no meningeal signs Chest: COMMONS NORMALS: normal palpation of entire chest wall Resp: COMMON NORMALS: normal respiratory effort Cardio: COMMON NORMALS: regular rate RATE: regular rate Neuro: SENSORIUM/ORIENTATION: Yes alert MENINGEAL SIGNS: Yes no meningeal signs Course Vital Signs: Vital signs: Vital Signs Temperature 98.0 F 05/01/23 16:46 Pulse Rate 85 05/01/23 16:46 Respiratory Rate 16 05/01/23 16:46 Blood Pressure 141/79 05/01/23 16:46 Pulse Oximetry 96 05/01/23 16:46 Oxygen Delivery Me thod Room Air 05/01/23 16:46 MDM - Headache Medical Decision Making Patient came in today due to a headache that started about 2 hours prior to arrival. Patient taken some Tylenol with minimal to no relief. Patient reports 4 days ago she had some shoulder and neck pain. Headache also coincides with neck and shoulder pain on the right side. No focal neural deficits are noted on exam. Respirations are even lungs are clear to auscultation. Vital signs are normal except for some mild elevation in blood pressure at 141. Differential diagnosis includes but not limited to occipital neuralgia, cervicalgia, muscle strain, intracranial bleeding, migraine headache. CBC, CMP and cardiac enzymes were unremarkable. Troponin showed no elevation. CT of the head was unremarkable. Patient was given 30 mg ketorolac IM and 10 mg of metoclopramide IM with resolution of headache. Believe patient probably had a tension headache due to the pain being both in her neck shoulder and then headache following it. Recommend srar-vzi-ecrclpj medications as needed for pain. Recommend follow-up with primary care for further evaluation. Recommend return to the ER for worsening symptoms or new concerns. Patient reported understanding and agreed to plan. Patient was stable and released to home. Lab Data 05/01/23 16:33 05/01/23 16:[address] 05/01/23 17:28 IMPRESSION: Stable exam, no acute intracranial abnormality. Laboratory Results WBC 10.3 10^3/uL (4.0-10.0) H 05/01/23 16:33 RBC 5.19 10^6/uL (4.1-5.3) 05/01/23 16:33 Hgb 15.1 g/dL (11.5-15.3) 05/01/23 16:33 Hct 46.9 % (37.0-47.0) 05/01/23 16:33 MCV 90.4 fl (81-99) 05/01/23 16:33 MCH 29.1 pg (28.0-34.0) 05/01/23 16: MCHC 32.2 g/dL (30.0-36.0) 05/01/23 16:33 RDW 13.5 % (12.1-15.1) 05/01/23 16:33 Plt Count 333 10^3/cmm (130-400) 05/01/23 16: MPV 9.3 fL (7.4-10.4) 05/01/23 16:33 Neut % (Auto) 54.1 % 05/01/23 16:33 Lymph % (Auto) 35.4 % 05/01/23 16:33 [place] % (Auto) 7.3 % 05/01/23 16:33 Eos % (Auto) 2.2 % 05/01/23 16:33 Baso % (Auto) 0.7 % 05/01/23 16:33 Neut # (Auto) 5.55 10^3/uL (1.8-7.7) 05/01/23 16:33 Lymph # (Auto) 3.6 10^3/uL (0.8-4.8) 05/01/23 16:33 Sebastian # (Auto) 0.8 10^3/uL (0.2-0.9) 05/01/23 16: Eos # (Auto) 0.2 10^3/uL (0.0-0.8) 05/01/23 16:33 Baso # (Auto) 0.1 10^3/uL (0.0-0.1) 05/01/23 16: Nucleated RBC % (auto) 0 % 05/01/23 16: Nucleated RBCs # 0.0 /100WBC 05/01/23 16:33 PT 12.10 SECONDS (12.1-14.9) 05/01/23 16:33 INR 0.87 (0.8-1.2) 05/01/23 16:33 Sodium 139 mmol/L (136-145) 05/01/23 16:33 Potassium 3.8 mmol/L (3.5-5.1) 05/01/23 16:33 Chloride 100 mmol/L (98-107) 05/01/23 16:33 Carbon Dioxide 27 mmol/L (22-29) 05/01/23 16:33 Anion Gap 15.8 (5-19) 05/01/23 16:33 BUN 12 mg/dL (8-23) 05/01/23 16:33 Creatinine 0.6 mg/dL (0.5-0.9) 05/01/23 16:33 GFR Calculation 102.0 mL/min (90-130) 05/01/23 16:33 Glucose 129 mg/dL (65-115) H 05/01/23 16:33 Calculated Osmolality 289 mOsm/kg (285-295) 05/01/23 16:33 Calcium 9.7 mg/dL (8.5-10.5) 05/01/23 16:33 Total Bilirubin 0.3 mg/dL (0.15-1.2) 05/01/23 16:33 AST 28 U/L (0-32) 05/01/23 16:33 ALT 35 U/L (0-33) H 05/01/23 16:33 Alkaline Phosphatase 115 U/L (35-105) H 05/01/23 16:33 Troponin T Baseline 6 ng/L (0-10) 05/01/23 16:33 Total Protein 7.4 g/dL (6.6-8.7) 05/01/23 16:33 Albumin 4.2 g/dL (3.5-5.2) 05/01/23 16:33 Globulin 3.2 g/dL (1.3-4.6) 05/01/23 16:33 Urine Color Light yellow (Yellow) 05/01/23 16:21 Urine Appearance Clear (CLEAR) 05/01/23 16:21 Urine pH 6 (5-7) 05/01/23 16:21 Ur Specific [place] 1.015 (1.005-1.030) 05/01/23 16:21 Urine Protein Neg (Negative) 05/01/23 16:21 Urine Glucose (UA) Norm (Normal) 05/01/23 16:21 Urine Ketones Negative (Negative) 05/01/23 16:21 Urine Blood Neg (Negative) 05/01/23 16:21 Urine Nitrate Negative (Negative) 05/01/23 16:21 Urine Bilirubin Neg (Negative) 05/01/23 16:21 Urine Urobilinogen Norm mg/dL (Negative) 05/01/23 16:21 Ur Leukocyte Esterase Negative (Negative) 05/01/23 16:21 Discharge Plan Discharge Patient Disposition: Home Clinical Impression: Tension headache Condition: Stable Prescriptions: No Action cholecalciferol (vitamin D3) 125 mcg (5,000 unit) capsule 125 mcg PO DAILY Qty: 90 1RF Hold Instructions: Dose Change cephalexin 500 mg capsule 500 mg PO BID 7 Days Qty: 14 0RF mxbijld-rwbn-uvrpi-oreg-capryl 100 mg-150 mg- 50 mg-150 mg Capsule 1 cap PO DAILY acetaminophen 325 mg Tablet 650 mg PO Q6H PRN (Reason: Mild/Mod Pain Or Temp >/= 101) Qty: 60 3RF hydrocodone-acetaminophen 5-325 mg tablet 1 tab PO BID PRN (Reason: pain) Qty: 10 0RF Discharge Orders: Discharge ED (Routine); Ordered 05/01/23 Ordered By: Jason Spaulding Referrals: Genie Bello FNP [Primary Care Provider] - Discharge Diet: Usual diet Discharge Activity: Increase activity as tolerated Patient Instructions: Tension Headache (ED) Activity Restrictions/Additional Instructions: Drink plenty of water. Continue with routine home medications as needed for pain including acetaminophen and/or ibuprofen. Gentle stretching and range of motion exercises of the neck. Make sure to take frequent rest periods when doing activities that holds the neck in awkward positions for prolonged periods. Follow-up with primary care for further instructions. Return to ED for new concerns. Coding Level of Care Code ED Telephoner for Callie Moraes
--- NOTE | 2023-05-01 17:28 | CTR_ITS ---
PROCEDURE INFORMATION: Exam: CT Head Without Contrast Exam date and time: 05/01/2023 6:12 PM Age: 62 years old Clinical indication: Pain; Headache not specified TECHNIQUE: Imaging protocol: Computed tomography of the head without contrast. Radiation optimization: All CT scans at this facility use at least one of these dose optimization techniques: automated exposure control; mA and/or kV adjustment per patient size (includes targeted exams where dose is matched to clinical indication); or iterative reconstruction. REPORTING DATA: Count of CT and Cardiac NM exams in prior 12 months: This patient has received [address] and 0 known cardiac nuclear medicine studies in the 12 months prior to the current study. COMPARISON: CT head wo con* [id number] 11/22/2017 4:41 PM RADIATION DOSE METRICS: Total DLP (mGy-cm): 1085.69 FINDINGS: Brain: Redemonstrated arachnoid cyst measuring up to 1.7 cm in length in the interhemispheric region adjacent to and impressing upon the body and splenium of the corpus callosum, not significantly changed from prior study. No hemorrhage. Unremarkable white matter. No mass effect. Cerebral ventricles: No ventriculomegaly. Paranasal sinuses: Visualized sinuses are unremarkable. No fluid levels. Mastoid air cells: Visualized mastoid air cells are well aerated. Bones/joints: Unremarkable. No acute fracture. Soft tissues: Unremarkable. CT/CT head wo con* [id number] IMPRESSION: Stable exam, no acute intracranial abnormality.
[2023-05-01] MEDS: ketorolac 30 mg/mL INJ IM (18:01)
[2023-05-01] MEDS: metoclopramide 5 mg/mL SDV 2 mL 10 MG IM (18:01)
== END 2023-05-01 19:33 | disposition home or self-care (01) ==
PROVIDERS: Emergency Medicine; Emergency Provider Nurse Practitioner Family; PCP Nurse Practitioner Family
DX: G44.209 Tension-type headache, unspecified, not intractable (principal); E11.9 Type 2 diabetes mellitus without complications
CPT/HCPCS: 36415; 70450; 80053; 81003; 84484; 85025; 85610; 93005; 96372; 99285; J1885; J2765

== ENCOUNTER → 2023-05-28 13:55 | Outpatient (BNVA) | payer MEDICARE, SELFPAY | PROVIDERS: PCP Nurse Practitioner Family; Visit Provider Nurse Practitioner Family | DX: L98.9 Disorder of the skin and subcutaneous tissue, unspecified (principal) | CPT/HCPCS: 88304 ==

== ENCOUNTER 2023-10-03 13:00 | Outpatient (CLI) | payer MEDICARE, SELFPAY ==
--- NOTE | 2023-10-03 13:00 | XR_ITS ---
WS: [id number] SCREENING DEXA SCAN [employer] CLINICAL INFORMATION: M81.0 - Age-related osteoporosis without current patholog... COMPARISON: None. FINDINGS: The L1-L4 bone mineral density measures 1.238 g/cm2. This corresponds to a T score score of 0.5 and Z score of 0.6. Left femoral neck bone mineral density measures 1.053 g/cm2. This corresponds to a T score of 0.4 and Z score of 0.5. Right femoral neck bone mineral density measures 1.075 g/cm2. This corresponds to a T score 0.5of and Z score of 0.7. Mean femoral neck bone mineral density measures 1.064 g/cm2. This corresponds to a T score of 0.4 and Z score of 0.6. IMPRESSION: Normal bone mineralization. Patient's FRAX calculated 10 year probability for major osteoporotic fracture is 5.8% and osteoporoti c hip fracture is 0.2%.
--- NOTE | 2023-10-03 14:50 | MM_ITS ---
WS: [id number] BILATERAL 3D TOMOSYNTHESIS DIGITAL SCREENING MAMMOGRAPHY WITH CAD CLINICAL INFORMATION: Z12.39 - Encounter for other screening for malignant neop... HISTORY: Screening mammogram. No current complaints. COMPARISON: None. TECHNIQUE: Bilateral CC and MLO views. FINDINGS: Scattered nodular fibroglandular densities bilaterally. No suspicious focal mass, asymmetry, calcific ations, or architectural distortion. No evidence of malignancy. Incidental coarse calcifications. Inc idental punctate calcifications. IMPRESSION: MM/[place] [id number] BI-RADS: 2-Benign FOLLOW UP: 1 Year Follow-up Recommend return to annual screening mammography.
== END 2023-10-03 13:01 | disposition home or self-care (01) ==
LOC: RAD 13:00
PROVIDERS: PCP Nurse Practitioner Family; Visit Provider Nurse Practitioner Family
DX: Z12.31 Encounter for screening mammogram for malignant neoplasm of breast (principal); Z13.820 Encounter for screening for osteoporosis; M81.0 Age-related osteoporosis without current pathological fracture
CPT/HCPCS: 77063; 77067; 77080

== ENCOUNTER → 2023-10-30 15:37 | Outpatient (BNVA) | payer MEDICARE, SELFPAY | PROVIDERS: PCP Nurse Practitioner Family; Visit Provider Nurse Practitioner Family | DX: J11.1 Influenza due to unidentified influenza virus with other respiratory manifestations (principal); J06.9 Acute upper respiratory infection, unspecified | CPT/HCPCS: 87400; 87426 ==

== ENCOUNTER 2024-01-29 16:22 | Outpatient (CLI) | payer MEDICARE, SELFPAY ==
--- NOTE | 2024-01-29 16:28 | XR_ITS ---
WS: [id number] Exam: XR hip RT 2-3V wo/w pel* [id number] Date/Time of Exam: 01/29/2024 4:28 PM Reason For Exam: M25.551 - Pain in right hip Exam: XR hip RT 2-3V wo/w pel* [id number] Date/Time of Exam: 01/29/2024 4:28 PM Reason For Exam: M25.551 - Pain in right hip Comparison 11/03/2020. Moderately advanced degenerative narrowing of the RIGHT hip joint. Osteophyte formation along the lat eral acetabulum. Normal soft tissues. No fracture. IMPRESSION: 1. Moderately advanced DJD. No fracture.
--- NOTE | 2024-01-29 16:28 | XRR_ITS ---
PROCEDURE INFORMATION: Exam: XR Lumbosacral Spine Exam date and time: 01/29/2024 4:30 PM Age: 63 years old Clinical indication: Pain; [place]; Additional info: M54.9 - dorsalgia, unspecified TECHNIQUE: Imaging protocol: Radiologic exam of the lumbosacral spine. Views: 2 or 3 views. COMPARISON: CR XR lumbar spine 2-3V* [id number] 11/03/2020 1:21 PM FINDINGS: Bones/joints: Slight dextrocurvature of the lumbar spine. Moderate facet arthropathy at L3-S1 levels. Mild endplate spurring at L2-L3 level. Moderate degenerative arthrosis of the right hip Soft tissues: Staghorn calculi/coarse calcification in the lower pole of the left kidney again noted as well as surgical material overlying the left kidney as demonstrated on prior CT. XR/XR lumbar spine 2-3V* [id number] IMPRESSION: No acute plain radiographic abnormality in the lumbar spine. Mild scoliosis and moderate mid to lower lumbar facet arthropathy again demonstrated.
== END 2024-01-29 16:23 | disposition home or self-care (01) ==
LOC: RAD 16:23
PROVIDERS: PCP Nurse Practitioner Family; Visit Provider Nurse Practitioner Family
DX: M41.9 Scoliosis, unspecified; M16.11 Unilateral primary osteoarthritis, right hip; M25.751 Osteophyte, right hip; M25.551 Pain in right hip; M54.50 Low back pain, unspecified
CPT/HCPCS: 72100; 73502

== ENCOUNTER → 2024-02-08 17:36 | Outpatient (BNVA) | payer MEDICARE, SELFPAY | PROVIDERS: PCP Nurse Practitioner Family; Visit Provider Nurse Practitioner | DX: J06.9 Acute upper respiratory infection, unspecified (principal) | CPT/HCPCS: 71046 ==

== ENCOUNTER 2024-02-14 15:58 | Outpatient (CLI) | payer MEDICARE, SELFPAY ==
--- NOTE | 2024-02-14 16:45 | MR_ITS ---
WS: [id number] EXAMINATION: MR hip RT wo con* [id number] ORDER DATE: 02/14/2024 5:00 PM COMPARISON: None. HISTORY: M25.551 - Pain in right hip CONTRAST: None. TECHNIQUE: Coronal STIR of the Pelvis. Coronal proton density, coronal T1, axial T2 fat sat, axial T1 , sagittal T2 fat sat, and sagittal T1 performed of the hip. After contrast, axial T1 fat sat, coron al T1 fat sat, and sagittal T1 fat sat were performed. FINDINGS: Advanced degenerative narrowing RIGHT hip with hypertrophic changes along the femoral neck. Osteopeni a. Normal bone marrow signal in the RIGHT femoral head and femoral neck. No acute fractures. No evide nce of avascular necrosis. Normal bone marrow signal in the LEFT hip. Partially visualized proximal f emurs are normal in appearance. Normal bone marrow signal in the sacrum and bony pelvis. Normal visualized pelvic soft tissues. No visualized RIGHT inguinal lymphadenopathy. IMPRESSION: 1. Advanced degenerative narrowing RIGHT hip. No acute fractures. Normal bone marrow signal in the R IGHT femoral head and neck. 2. No acute fractures. 3. Normal bone marrow signal LEFT hip. 4. Normal sacrum. 5. No acute findings.
== END 2024-02-14 15:59 | disposition home or self-care (01) ==
LOC: RAD 15:58
PROVIDERS: PCP Nurse Practitioner Family; Visit Provider Nurse Practitioner Family
DX: M16.11 Unilateral primary osteoarthritis, right hip (principal)
CPT/HCPCS: 73721

== ENCOUNTER 2024-03-20 09:20 | Outpatient (RCR) | payer MEDICARE, SELFPAY | END 2024-04-04 23:59 | disposition home or self-care (01) | LOC: SPT 09:20 | PROVIDERS: PCP Nurse Practitioner Family; Visit Provider Nurse Practitioner Family | DX: M16.11 Unilateral primary osteoarthritis, right hip (principal) | CPT/HCPCS: 97161 ==

== ENCOUNTER 2024-04-15 09:57 | Outpatient (RCR) | payer MEDICARE, SELFPAY | END 2024-04-18 23:59 | disposition home or self-care (01) | LOC: SPT 09:57 | PROVIDERS: PCP Nurse Practitioner Family; Visit Provider Nurse Practitioner Family | DX: M16.9 Osteoarthritis of hip, unspecified (principal) | CPT/HCPCS: 97110 ==

== ENCOUNTER 2024-04-16 16:43 | Observation (INO) | payer MEDICARE, SELFPAY ==
[2024-04-16 16:49] VITALS: BMI 44.4
--- NOTE | 2024-04-16 17:48 | PM.HP ---
Providers/Chief Complaint Admitting Physician: Karin Clemente MD Primary Care Provider: STEVEN Tillman Chief Complaint: Small Bowel obstruction History of Present Illness Dipti Bansal is a 63 year old female with history of fibromyalgia, diverticulosis s/p colectomy for perforated bowel and colostomy presented at [facility] ER complaining of upper abdominal pain. She states this started Sunday morning and then resolved. It returned again on Sunday and was worsening. Patient felt bloated so she did take Dulcolax 2 tablets and did have a small bowel movement. Since yesterday she is having worsening of abdominal pain associated with nausea but no vomiting. She denies any history of fever, recent travel or sick contacts. She had a colostomy takedown as well. Patient stated that initial surgery was done by Dr. Berg and requested to be transferred to [facility]. On evaluation of the patient at bedside, she complained of diffuse abdominal pain, 4/10, no aggravating or relieving factors, associated with nausea but no vomiting and gaseous distention. She does report eating popcorn on Sunday and thinks this might have triggered the pain. She was found to have a WBC count of 10.9, hemoglobin of 16, lipase 34, she was hemodynamically stable and CT abdomen showed left ventral hernia, mildly distended small bowel, distal small bowel is decompressed suggesting partial obstruction. Bilateral nonobstructive renal stones. Review of Systems General: Reports: 10 or more systems reviewed and unremarkable except in HPI and below Medications/Allergies Home Medications Medication Instructions Recorded Confirmed Last Taken Type cholecalciferol (vitamin D3) 125 125 mcg PO DAILY #90 caps 09/13/21 04/16/24 12/18/22 Rx mcg (5,000 unit) capsule turmeric 100 mg-bita 150 1 cap PO DAILY 12/19/22 04/16/24 04/15/24 History mg-olive 50 mg-oreg 150 mg-capryl capsule acetaminophen 325 mg tablet 650 mg (2 x 325 mg) PO Q6H PRN 12/24/22 04/16/24 Unknown Rx Mild/Mod Pain Or Temp >/= 101 #60 tabs albuterol sulfate 90 mcg/actuation 2 puff inhalation Q4H PRN 02/08/24 04/16/24 04/11/24 Rx aerosol inhaler shortness of breath or wheezing #8.5 grams Allergies Allergy/AdvReac Type Severity Reaction Status Date / Time sulfamethoxazole Allergy worsening Verified 02/18/24 15:55 [From Bactrim] of symptoms trimethoprim [From Bactrim] Allergy worsening Verified 02/18/24 15:55 of symptoms ciprofloxacin [From Cipro] AdvReac Mild abdominal Verified 02/18/24 15:55 cramp GI Cocktail Allergy Unknown ADR-Dizzine Uncoded 02/18/24 15:55 ss PFSH Acute PFSH: Medical History Diverticulitis of large intestine with complication Renal artery pseudoaneurysm Staghorn renal calculus Diverticulitis large intestine Perforated sigmoid colon Fibromyalgia Diabetes Chest pain Surgical History History of exploratory laparotomy with Hilton's procedure History of kidney surgery H/O: hysterectomy Hx of cholecystectomy Family History Mother Cancer lung cancer Lung disease Family/Other Diabetes paternal side of the family Lung disease maternal Denies family history of CAD (coronary artery disease) Hypertension Stroke Social History Smoking and tobacco/nicotine status: never used tobacco/nicotine Alcohol intake: never Substance/Drug Use: never Adopted: No Caregiver/support person: No Lives independently: Yes Household members: none Marital status: / service: No Current occupational status: other Details: widows disability Do you think of yourself as: Straight/Heterosexual Current gender identity: Female Vitals/I&O/Wt Last Vital Signs O2 Del Method Room Air 04/16/24 16:49 Weight last 48 hrs Weight 121.109 kg Physical Exam Narrative: She is obese ,alert awake oriented x 3, not in acute distress. Chest clear to auscultation bilaterally Cardiovascular normal heart sounds no murmurs Abdomen soft, distended, tender,, normal bowel sounds. Extremities no edema noted bilateral lower extremities A&P Assessment and plan (1) Small bowel obstruction: Plan 63 year old female with history of fibromyalgia, diverticulosis s/p colectomy for perforated bowel and colostomy presented at [facility] ER complaining of upper abdominal pain associated with nausea and found to have mildly dilated small bowel and distal small bowel decompression suggesting partial obstruction with mild leukocytosis. Small bowel obstruction- Admit to [facility] N.p.o. for now NG tube Will do Dulcolax 2 tabs twice daily IV Zofran 4 mg every 8 hours IV Pepcid 20 mg twice daily IV Toradol 30 mg every 6 hours as needed IV fluids normal saline at 150 MLS per hour Follow up Surgery consult DVT prophylaxis with subcutaneous heparin She is full code for now. Attestations Medical Necessity Statement*: She needs continued hospitalization crossing 2 midnights for management of partial small bowel obstruction with IV fluids, Pepcid, Zofran, pain medications and surgery consult Time Spent in Patient Care: 45 minutes Coding Level of Care Code Acute Code for [facility] Fwd Diagnoses Small bowel obstruction K56.609 Time Spent (min) 45
[2024-04-16 17:56] VITALS: BP 130/77; PULSE 76; RESP 16; TEMP 36.6; O2SAT 94
[2024-04-16 17:58] VITALS: BP 130/77; PULSE 76; RESP 16; TEMP 36.6; O2SAT 94
[2024-04-16] MEDS: ketorolac 30 mg/mL INJ IVP (18:22)
[2024-04-16] MEDS: ondansetron 2 mg/ML SDV 2 mL 4 MG IVP (18:26)
[2024-04-16] MEDS: heparin 5,000 unit/mL INJ 1 mL 5000 UNIT SUBCUT (18:41)
[2024-04-16] MEDS: famotidine 20 mg/2 mL INJ IVP (18:41)
[2024-04-16] MEDS: sodium chloride 0.9% 1,000 ML 150 ML IV (18:42)
[2024-04-16 20:00] VITALS: BP 116/72; PULSE 88; RESP 18; TEMP 36.8; O2SAT 94
[2024-04-17] VITALS (7 sets, daily range): BP systolic 118–172; BP diastolic 76–83; PULSE 75–82; RESP 16–18; TEMP 36.4–36.8; O2SAT 94–97
[2024-04-17] MEDS: LORazepam 2 mg/mL INJ 10 mL MDV 0.5 MG IVP (00:02)
[2024-04-17] MEDS: sodium chloride 0.9% 1,000 ML 150 ML IV ×2 (02:00→09:47)
[2024-04-17] MEDS: ondansetron 2 mg/ML SDV 2 mL 4 MG IVP ×2 (02:00→09:47)
--- NOTE | 2024-04-17 04:14 | PC.NURSE ---
Attempted to insert NG tube two times. Patient is refusing. Dr Berg notified and stated its okay to leave the NG tube out for now.
[2024-04-17 05:19] LABS: Basophils # 0.1 10^3/uL (0.0-0.1); Basophils % 0.5 %; Eosinophils # 0.2 10^3/uL (0.0-0.8); Eosinophils % 2.5 %; Hematocrit 43.7 % (36-47); Lymphocytes # 3.3 10^3/uL (0.8-4.8); Lymphocytes % 34.9 %; Mean Corpuscular HGB Conc 32.3 g/dL (30-55); Mean Platelet Volume 9.1 fL (7.4-10.4); Monocytes # 0.7 10^3/uL (0.2-0.9); Monocytes % 7.9 %; Neutrophils # 5.03 10^3/uL (1.8-7.7); Nucleated Red Blood Cells % 0 %; Platelet Count 270 10^3/cmm (157-399); Red Blood Count 4.55 10^6/uL (3.85-5.65); Red Cell Distribution Width 13.3 % (12.1-15.1); White Blood Count 9.32 10^3/uL (3.29-11.43)
[2024-04-17 05:37] LABS: Alanine Aminotransferase 25 U/L (0-33); Albumin Level 3.3 g/dL (3.5-5.2); Alkaline Phosphatase 72 U/L (35-105); Anion Gap 13.1 (5-19); Aspartate Amino Transferase 27 U/L (0-32); Blood Urea Nitrogen 11 mg/dL (8-23); Calcium 8.1 mg/dL (8.5-10.5); Carbon Dioxide 24 mmol/L (22-29); Chloride 105 mmol/L (98-107); Creatinine Clr Calc Pharmacy 110.1095; Globulin 2.8 g/dL (1.3-4.6); Glomerular Filtration Rate 85.1 mL/min (90-130); Glucose 120 mg/dL (65-115); Magnesium 1.9 mg/dL (1.7-2.3); Osmolality Calculated 287 mOsm/kg (285-295); Potassium 4.1 mmol/L (3.5-5.1); Sodium 138 mmol/L (136-145); Total Bilirubin 0.5 mg/dL (0.15-1.2); Total Protein 6.1 g/dL (6.6-8.7)
[2024-04-17] MEDS: famotidine 20 mg/2 mL INJ IVP (05:38)
[2024-04-17] MEDS: heparin 5,000 unit/mL INJ 1 mL 5000 UNIT SUBCUT (05:38)
[2024-04-17] MEDS: ketorolac 30 mg/mL INJ IVP (08:49)
--- NOTE | 2024-04-17 13:33 | PM.DCS ---
Discharge Providers Date of Admission: 04/16/24 16:43 Date of Discharge: April 17, 2024 Attending Provider at Admission: Karin Clemente MD Attending Provider at Discharge: Neville Musa MD Primary Care Provider: STEVEN Tillman Diagnoses at Discharge Discharge Diagnosis (1) Small bowel obstruction: Status: Resolved Reason for Visit Reason for Visit: Small Bowel obstruction Hospital Course Hospital Course Dipti Bansal is a 63 year old female with history of fibromyalgia, diverticulosis s/p colectomy for perforated bowel and colostomy presented at [facility] ER complaining of upper abdominal pain. She states this started Sunday morning and then resolved. It returned again on Sunday and was worsening. Patient felt bloated so she did take Dulcolax 2 tablets and did have a small bowel movement. Since yesterday she is having worsening of abdominal pain associated with nausea but no vomiting. She denies any history of fever, recent travel or sick contacts. She had a colostomy takedown as well. Patient stated that initial surgery was done by Dr. Berg and requested to be transferred to [facility]. On evaluation of the patient at bedside, she complained of diffuse abdominal pain, 4/10, no aggravating or relieving factors, associated with nausea but no vomiting and gaseous distention. She does report eating popcorn on Sunday and thinks this might have triggered the pain. She was found to have a WBC count of 10.9, hemoglobin of 16, lipase 34, she was hemodynamically stable and CT abdomen showed left ventral hernia, mildly distended small bowel, distal small bowel is decompressed suggesting partial obstruction. Bilateral nonobstructive renal stones. Patient was monitored as inpatient, kept n.p.o., general surgery was consulted, managed with IV fluids, attempts were made to place NG tube however patient removed NG tube due to intolerance, nonetheless patient had 3 bowel movements, abdominal pain resolved, passing gas, no recurrent nausea vomiting, general surgery recommended discharge on GI soft diet with close follow-up with general surgery as outpatient. Patient was monitored on a GI soft diet, no recurrent abdominal pain, discharged home on a GI soft diet with close follow-up with general surgery as outpatient Physical Exam Const: COMMON NORMALS: no acute distress and patient oriented x3 Resp: COMMON NORMALS: normal respiratory effort, No retractions, No use of accessory muscles and clear to auscultation bilaterally AUSCULTATION: clear to auscultation bilaterally Cardio: COMMON NORMALS: regular rate, regular rhythm, S1 normal heart sound present and S2 normal heart sound present RATE: regular rate RHYTHM: regular rhythm HEART SOUNDS: S1 normal heart sound present and S2 normal heart sound present GI: COMMON NORMALS: Normal to inspection, nondistended, normoactive bowel sounds present and non-tender Extremity: COMMON NORMALS: no pedal edema Neuro: COMMON NORMALS: patient oriented x3 Psych: COMMON NORMALS: mental status grossly normal Discharge Data Studies Completed and Pending Laboratory Results WBC 9.32 10^3/uL (3.29-11.43) 04/17/24 04:45 RBC 4.55 10^6/uL (3.85-5.65) 04/17/24 04:45 Hgb 14.10 g/dL (11.27-16.99) 04/17/24 04:45 Hct 43.7 % (36-47) 04/17/24 04:45 MCV 96.0 fl (85-98) 04/17/24 04:45 MCH 31.0 pg (27-33) 04/17/24 04:45 MCHC 32.3 g/dL (30-55) 04/17/24 04:45 RDW 13.3 % (12.1-15.1) 04/17/24 04:45 Plt Count 270 10^3/cmm (157-399) 04/17/24 04:45 MPV 9.1 fL (7.4-10.4) 04/17/24 04:45 Neut % (Auto) 54.0 % 04/17/24 04:45 Lymph % (Auto) 34.9 % 04/17/24 04:45 Darke % (Auto) 7.9 % 04/17/24 04:45 Eos % (Auto) 2.5 % 04/17/24 04:45 Baso % (Auto) 0.5 % 04/17/24 04:45 Neut # (Auto) 5.03 10^3/uL (1.8-7.7) 04/17/24 04:45 Lymph # (Auto) 3.3 10^3/uL (0.8-4.8) 04/17/24 04:45 Darke # (Auto) 0.7 10^3/uL (0.2-0.9) 04/17/24 04:45 Eos # (Auto) 0.2 10^3/uL (0.0-0.8) 04/17/24 04:45 Baso # (Auto) 0.1 10^3/uL (0.0-0.1) 04/17/24 04:45 Nucleated RBC % (auto) 0 % 04/17/24 04:45 Nucleated RBCs # 0.0 /100WBC 04/17/24 04:45 Sodium 138 mmol/L (136-145) 04/17/24 04:45 Potassium 4.1 mmol/L (3.5-5.1) 04/17/24 04:45 Chloride 105 mmol/L (98-107) 04/17/24 04:45 Carbon Dioxide 24 mmol/L (22-29) 04/17/24 04:45 Anion Gap 13.1 (5-19) 04/17/24 04:45 BUN 11 mg/dL (8-23) 04/17/24 04:45 Creatinine 0.7 mg/dL (0.5-0.9) 04/17/24 04:45 GFR Calculation 85.1 mL/min (90-130) L 04/17/24 04:45 Glucose 120 mg/dL (65-115) H 04/17/24 04:45 Calculated Osmolality 287 mOsm/kg (285-295) 04/17/24 04:45 Calcium 8.1 mg/dL (8.5-10.5) L 04/17/24 04:45 Magnesium 1.9 mg/dL (1.7-2.3) 04/17/24 04:45 Total Bilirubin 0.5 mg/dL (0.15-1.2) 04/17/24 04:45 AST 27 U/L (0-32) 04/17/24 04:45 ALT 25 U/L (0-33) 04/17/24 04:45 Alkaline Phosphatase 72 U/L (35-105) 04/17/24 04:45 Total Protein 6.1 g/dL (6.6-8.7) L 04/17/24 04:45 Albumin 3.3 g/dL (3.5-5.2) L 04/17/24 04:45 Globulin 2.8 g/dL (1.3-4.6) 04/17/24 04:45 Vitals Last Vital Signs Temp 97.7 F 04/17/24 12:00 Pulse 75 04/17/24 12:00 Resp 16 04/17/24 12:00 BP 172/82 04/17/24 12:00 Pulse Ox 95 04/17/24 12:00 O2 Del Method Room Air 04/17/24 12:00 Discharge Plan Discharge Patient Disposition: Home Condition: Stable Prescriptions: Continued cholecalciferol (vitamin D3) 125 mcg (5,000 unit) capsule 125 mcg PO DAILY Qty: 90 1RF Hold Instructions: Dose Change albuterol sulfate 90 mcg/actuation HFA aerosol inhaler 2 puff inhalation Q4H PRN (Reason: shortness of breath or wheezing) Qty: 8.5 0RF wbjunjrq-nvlf-giavq-oreg-capry 100 mg-150 mg- 50 mg-150 mg Capsule 1 cap PO DAILY acetaminophen 325 mg Tablet 650 mg PO Q6H PRN (Reason: Mild/Mod Pain Or Temp >/= 101) Qty: 60 3RF Discharge Orders: Discharge Order (Routine); Ordered 04/17/24 Ordered By: Neville Musa Referrals: Willian Berg DO [Physician] - 1 week (We have notified your physician's clinic of the need for a follow-up appointment to be scheduled. If you have not heard from them within the next 2 business days, please call them directly. ) Genie Bello FNP [Primary Care Provider] - (We have notified your physician's clinic of the need for a follow-up appointment to be scheduled. If you have not heard from them within the next 2 business days, please call them directly. ) Discharge Diet: GI Soft Discharge Activity: Resume usual activity Patient Instructions: Bowel Obstruction (DC), Opioid Safety Activity Restrictions/Additional Instructions: - Please adhere to GI soft diet ? If you have recurrent abdominal pain please go to emergency room Discharge Attestations Time Spent in Discharge Care*: greater than 30 min Quality Metrics Clinical Quality Measures [ No reported AMI, CVA or VTE this stay] Coding Level of Care Code 55240 Total time (in minutes) for Discharge: 45 Diagnoses Small bowel obstruction K56.609
--- NOTE | 2024-04-17 14:26 | P.CONIM_ITS ---
Providers/Reason For Consult 2 Consulting Physician/Specialty*: Dr. Willian Berg, DO/General surgery Reason for Consult*: Small bowel obstruction Attending Physician: Neville Musa MD Primary Care Provider: STEVEN Tillman History of Present Illness History of Present Illness Dipti Bansal is a 63 year old female who presented to an outside hospital with abdominal pain and not passing flatus or having a bowel movement for over 1 day. She reportedly had a CT at this facility which showed a small bowel obstruction. She has a history of ruptured diverticulitis with Hilton's procedure and colostomy reversal. Currently she reports that her abdominal pain has resolved and she had 3 bowel movements overnight and is passing flatus. She denies any nausea, emesis, hematochezia and/or melena. Review of Systems 2 General: Reports: 10 or more systems reviewed and unremarkable except in HPI and below Medications/Allergies Home Medications Medication Instructions Recorded Confirmed Last Taken Type cholecalciferol (vitamin D3) 125 125 mcg PO DAILY #90 caps 09/13/21 04/16/24 12/18/22 Rx mcg (5,000 unit) capsule turmeric 100 mg-bita 150 1 cap PO DAILY 12/19/22 04/16/24 04/15/24 History mg-olive 50 mg-oreg 150 mg-capryl capsule acetaminophen 325 mg tablet 650 mg (2 x 325 mg) PO Q6H PRN 12/24/22 04/16/24 Unknown Rx Mild/Mod Pain Or Temp >/= 101 #60 tabs albuterol sulfate 90 mcg/actuation 2 puff inhalation Q4H PRN 02/08/24 04/16/24 04/11/24 Rx aerosol inhaler shortness of breath or wheezing #8.5 grams Allergies Allergy/AdvReac Type Severity Reaction Status Date / Time sulfamethoxazole Allergy worsening Verified 02/18/24 15:55 [From Bactrim] of symptoms trimethoprim [From Bactrim] Allergy worsening Verified 02/18/24 15:55 of symptoms ciprofloxacin [From Cipro] AdvReac Mild abdominal Verified 02/18/24 15:55 cramp GI Cocktail Allergy Unknown ADR-Dizzine Uncoded 02/18/24 15:55 ss Current Medications Generic Name Dose Route Start Last Admin Trade Name Freq PRN Reason Stop Dose Admin Bisacodyl 20 mg 04/16/24 18:00 04/17/24 09:43 Bisacodyl 5 Mg Tablet PO 04/19/24 10:00 Not Given BID CRIS Protocol Famotidine 20 mg 04/16/24 18:00 04/17/24 05:38 Famotidine 20 Mg/2 Ml Inj IVP 20 mg Q12H CRIS Administration Heparin Sodium (Porcine) 5,000 unit 04/16/24 18:15 04/17/24 05:38 Heparin 5,000 Unit/Ml Inj 1 Ml SUBCUT 5,000 unit Q12H CRIS Administration Sodium Chloride 1,000 mls @ 150 mls/hr 04/16/24 18:00 04/17/24 09:47 Sodium Chloride 0.9% IV 150 mls/hr .Q6H40M CRIS Administration Ketorolac Tromethamine 30 mg 04/16/24 17:58 04/17/24 08:49 Ketorolac 30 Mg/Ml Inj IVP 04/21/24 17:57 30 mg Q6H PRN Administration MODERATE PAIN Ondansetron HCl 4 mg 04/16/24 18:00 04/17/24 09:47 Ondansetron 2 Mg/Ml Sdv 2 Ml IVP 4 mg Q8H CRIS Administration PFSH Acute 2 PFSH: Medical History Diverticulitis of large intestine with complication Renal artery pseudoaneurysm Staghorn renal calculus Diverticulitis large intestine Perforated sigmoid colon Fibromyalgia Diabetes Chest pain Surgical History History of exploratory laparotomy with Hilton's procedure History of kidney surgery H/O: hysterectomy Hx of cholecystectomy Family History Mother Cancer lung cancer Lung disease Family/Other Diabetes paternal side of the family Lung disease maternal Denies family history of CAD (coronary artery disease) Hypertension Stroke Social History Smoking and tobacco/nicotine status: never used tobacco/nicotine Alcohol intake: never Substance/Drug Use: never Adopted: No Caregiver/support person: No Lives independently: Yes Household members: none Marital status: / service: No Current occupational status: other Details: widows disability Do you think of yourself as: Straight/Heterosexual Current gender identity: Female Vitals/I&O/Wt Last Vital Signs Temp 97.7 F 04/17/24 12:00 Pulse 75 04/17/24 12:00 Resp 16 04/17/24 12:00 BP 172/82 04/17/24 12:00 Pulse Ox 95 04/17/24 12:00 O2 Del Method Room Air 04/17/24 12:00 04/16/24 04/17/24 04/17/24 22:59 06:59 14:59 Intake Total 120 / 120 1000 / 1120 1000 / 1000 Output Total 100 / 100 Balance 20 / 20 1000 / 1020 1000 / 1000 Weight last 48 hrs Weight 269 lb Weight 267 lb Physical Exam 2 Narrative: General : Patient is well developed , no acute distress, oriented x3 Head : Normal cephalic, a-traumatic. Ears : Pinnae and external canal are normal. Hearing is normal. Eyes : PERRLA, Sclera and injection are normal. No conjunctival discharge. Nose : Mucous membranes are without erythema. Throat : buccal mucosa is normal, gums are without significant recession or hypertrophy. Lungs : Equal chest rise bilaterally, no use of accessory muscles, trachea is midline. Cor : Rate and rhythm are normal. Abdomen : Soft, ND, NT, no g/r/m Extremities : No edema, no cyanosis or clubbing, dorsalis pedis pulses are present bilaterally, non-tender to palpation of calves. Upper extremities are normal bilaterally. Back : non-tender to palpation, no CVA tenderness. Neuro : CN II - XII intact, Upper and lower extremities have equal and full strength Data 04/17/24 04:45 04/17/24 04:45 A&P Assessment and plan (1) Partial small bowel obstruction: Plan She is treated with normal saline at 150 cc an hour overnight Obstruction is resolving Soft diet Surgically stable for discharge if tolerating regular diet Coding Level of Care Code 49482 Diagnoses Partial small bowel obstruction K56.600
== END 2024-04-17 18:12 | disposition home or self-care (01) ==
PROVIDERS: Admitting Provider Internal Medicine; PCP Nurse Practitioner Family; Visit Provider Family Medicine
DX: K56.609 Unspecified intestinal obstruction, unspecified as to partial versus complete obstruction (principal); M79.7 Fibromyalgia; Z90.49 Acquired absence of other specified parts of digestive tract; E11.9 Type 2 diabetes mellitus without complications
CPT/HCPCS: 36415; 80053; 83735; 85025; 96372; 97110; G0378; G0379; J1644; J1885; J2060; J2405; J3490; J7030

== ENCOUNTER → 2024-04-25 09:23 | Outpatient (BNVA) | payer MEDICARE, SELFPAY | PROVIDERS: PCP Nurse Practitioner Family; Visit Provider Surgery | DX: Z09 Encounter for follow-up examination after completed treatment for conditions other than malignant neoplasm (principal) | CPT/HCPCS: 99214 ==

== ENCOUNTER → 2024-05-19 09:13 | Outpatient (BNVA) | payer MEDICARE, SELFPAY | PROVIDERS: PCP Nurse Practitioner Family; Visit Provider Nurse Practitioner Family | DX: U07.1 COVID-19 (principal); E55.9 Vitamin D deficiency, unspecified; R53.82 Chronic fatigue, unspecified | CPT/HCPCS: 82607; 82652; 83550; 83735 ==

== ENCOUNTER 2024-07-29 12:08 | Outpatient (CLI) | payer MEDICARE, SELFPAY ==
--- NOTE | 2024-07-29 12:14 | XRR_ITS ---
PROCEDURE INFORMATION: Exam: XR Chest Exam date and time: 07/29/2024 12:24 PM Age: 63 years old Clinical indication: Patient HX: Congestion and cough in chest for 1 week, dizziness today; Additional info: R05.9 - cough, unspecified TECHNIQUE: Imaging protocol: Radiologic exam of the chest. Views: 2 views. COMPARISON: CR XR chest 2V* [id number] 02/08/2024 5:45 PM FINDINGS: Lungs: No focal consolidation. No pulmonary edema. Pleural spaces: No pleural effusion. No pneumothorax. Heart/Mediastinum: Stable prominent pericardial fat pad at the right cardiophrenic angle. The cardiac silhouette is mildly enlarged. Vasculature: Vascular calcifications in the aorta. Bones/joints: Unremarkable for age. Organs: Stable findings consistent with a previous cholecystectomy with surgical clips in the right upper quadrant. XR/XR chest 2V* [id number] IMPRESSION: 1. No acute cardiopulmonary process. 2. Incidental/nonacute findings are listed in the report. The
[2024-07-29 12:28] LABS: Basophils # 0.1 10^3/uL (0.0-0.1); Basophils % 0.9 %; Eosinophils # 0.4 10^3/uL (0.0-0.8); Eosinophils % 4.1 %; Hematocrit 51.6 % (36-47); Lymphocytes # 3.3 10^3/uL (0.8-4.8); Lymphocytes % 35.3 %; Mean Corpuscular HGB Conc 32.9 g/dL (30-55); Mean Corpuscular Hemoglobin 31.3 pg (27-33); Mean Corpuscular Volume 94.9 fl (85-98); Mean Platelet Volume 9.4 fL (7.4-10.4); Monocytes # 0.8 10^3/uL (0.2-0.9); Monocytes % 8.8 %; Neutrophils # 4.76 10^3/uL (1.8-7.7); Neutrophils % 50.7 %; Nucleated Red Blood Cells % 0 %; Platelet Count 310 10^3/cmm (157-399); Red Blood Count 5.44 10^6/uL (3.85-5.65); Red Cell Distribution Width 14.3 % (12.1-15.1); White Blood Count 9.38 10^3/uL (3.29-11.43)
[2024-07-29 12:45] LABS: Alanine Aminotransferase 24 U/L (0-33); Albumin Level 3.9 g/dL (3.5-5.2); Alkaline Phosphatase 113 U/L (35-105); Anion Gap 13.3 (5-19); Aspartate Amino Transferase 32 U/L (0-32); Blood Urea Nitrogen 10 mg/dL (8-23); Calcium 9.1 mg/dL (8.5-10.5); Carbon Dioxide 27 mmol/L (22-29); Chloride 101 mmol/L (98-107); Globulin 3.6 g/dL (1.3-4.6); Glomerular Filtration Rate 101.6 mL/min (90-130); Glucose 147 mg/dL (65-115); Osmolality Calculated 286 mOsm/kg (285-295); Potassium 4.3 mmol/L (3.5-5.1); Sodium 137 mmol/L (136-145); Total Bilirubin 0.3 mg/dL (0.15-1.2); Total Protein 7.5 g/dL (6.6-8.7)
== END 2024-07-29 12:09 | disposition home or self-care (01) ==
LOC: RAD 12:10
PROVIDERS: PCP Nurse Practitioner Family; Visit Provider Nurse Practitioner Family
DX: R05.9 Cough, unspecified (principal); R53.82 Chronic fatigue, unspecified; I70.0 Atherosclerosis of aorta
CPT/HCPCS: 36415; 71046; 80053; 85025

== ENCOUNTER → 2024-08-05 13:54 | Outpatient (BNVA) | payer MEDICARE, SELFPAY | PROVIDERS: PCP Nurse Practitioner Family; Visit Provider Nurse Practitioner Family | DX: E11.9 Type 2 diabetes mellitus without complications (principal) | CPT/HCPCS: 83036 ==

== ENCOUNTER → 2024-09-10 09:55 | Outpatient (BNVA) | payer MEDICARE, SELFPAY | PROVIDERS: PCP Nurse Practitioner Family; Visit Provider Nurse Practitioner Family | DX: E11.9 Type 2 diabetes mellitus without complications (principal) | CPT/HCPCS: 84439; 84443 ==

== ENCOUNTER → 2024-12-10 09:56 | Outpatient (BNVA) | payer MEDICARE, SELFPAY | PROVIDERS: PCP Nurse Practitioner Family; Visit Provider Nurse Practitioner Family | DX: M54.16 Radiculopathy, lumbar region (principal); M54.41 Lumbago with sciatica, right side; G89.29 Other chronic pain | CPT/HCPCS: 99214 ==

== ENCOUNTER → 2024-12-18 08:57 | Outpatient (BNVA) | payer MEDICARE, SELFPAY | PROVIDERS: PCP Nurse Practitioner Family; Visit Provider Nurse Practitioner Family | DX: M79.18 Myalgia, other site (principal); M54.16 Radiculopathy, lumbar region; M47.816 Spondylosis without myelopathy or radiculopathy, lumbar region | CPT/HCPCS: 20553; 99214; J1010; J3490 ==

== ENCOUNTER → 2024-12-29 08:21 | Outpatient (BNVA) | payer MEDICARE, SELFPAY | PROVIDERS: PCP Nurse Practitioner Family; Visit Provider Nurse Practitioner Family | DX: D48.5 Neoplasm of uncertain behavior of skin (principal); L82.1 Other seborrheic keratosis; L90.5 Scar conditions and fibrosis of skin; D22.5 Melanocytic nevi of trunk; L57.0 Actinic keratosis | CPT/HCPCS: 17000; 99203 ==

== ENCOUNTER → 2025-01-20 09:55 | Outpatient (BNVA) | payer MEDICARE, SELFPAY | PROVIDERS: PCP Nurse Practitioner Family; Referring Provider Nurse Practitioner Family; Visit Provider Surgery | DX: K46.9 Unspecified abdominal hernia without obstruction or gangrene (principal) | CPT/HCPCS: 99204; 99214 ==

== ENCOUNTER → 2025-01-29 13:46 | Outpatient (BNVA) | payer MEDICARE, SELFPAY | PROVIDERS: PCP Nurse Practitioner Family; Visit Provider Nurse Practitioner Family | DX: J02.0 Streptococcal pharyngitis (principal) | CPT/HCPCS: 87880 ==

== ENCOUNTER 2025-02-09 15:27 | Outpatient (CLI) | payer MEDICARE, SELFPAY ==
[2025-02-09] MEDS: iohexol 350 mg/mL 500 mL Btl (per mL) PO (16:28)
[2025-02-09 16:38] LABS: Blood Urea Nitrogen 16 mg/dL (8-23)
[2025-02-09 16:39] LABS: Glomerular Filtration Rate 101.3 mL/min (90-130)
[2025-02-09] MEDS: iohexol 350 mg/mL 500 mL Btl (per mL) IV (16:56)
--- NOTE | 2025-02-09 17:15 | CT_ITS ---
WS: [id number] CT ABDOMEN AND PELVIS WITH CONTRAST HISTORY: Hernia TECHNIQUE: Imaging performed of the abdomen and pelvis with IV contrast. Single phase imaging of the abdomen. Coronal and sagittal reformats are submitted. All CT scans at [facility] use at least one of these dose optimization techniques: automated exposure control; mA and/or kV adjustment per patient size (includes targeted exams where dose is matched to clinical indication); or iterative reconstruction. IV CONTRAST: Omnipaque 350; 100 mL IV. Oral contrast: Yes. DLP: 1085.25 mGy.cm COMPARISON: 04/16/2024 Lower thorax: Lung bases are clear. Heart is normal size. Small hiatal hernia. Liver/biliary system: Normal size with no intrahepatic dilatation. Gallbladder: Prior cholecystectomy. Pancreas: Normal size pancreas and pancreatic duct. No adjacent inflammation. Spleen: Normal size spleen. No mass or infarct. Adrenal glands: Normal. Right kidney: Normal size kidney. Nonobstructing 2 mm calcification lower pole. Left kidney: Numerous large calcifications in the lower pole of the LEFT kidney with surrounded calyces. Calcifications are layering in the calyces. There is no obstruction of the kidney. Progression of calyceal dilatation since 04/16/2024. Aorta: Normal. Lymphadenopathy: None. Free fluid: None. GI tract: No obstruction. No colitis. Normal appendix. Abdominal wall: Periumbilical hernia contains fat only. Orifice is 1.3 cm. The hernia is just to the LEFT of midline. There is an additional LEFT abdominal wall hernia at the level of the linea semilunaris. Defect within the abdominal wall musculature measures 5.5 cm and extends over a length of 5.1 cm. Nondilated small bowel extending into the hernia sac. No obstruction. The extent of small bowel protrusion into the hernia has increased since 04/16/2024. Pelvis: No free fluid or adenopathy within the pelvis. Bones: Unremarkable. CT/CT abdomen pelvis w con* [id number] IMPRESSION: 1. LEFT periumbilical abdominal wall hernia measures 1.3 cm and contains fat o nly. 2. Large LEFT abdominal wall hernia through the linea semilunaris. Abdominal w all defect measures 5.5 x 5.1 cm. Small bowel loops extend into the hernia sac. The extent of small bowel herniation has increased since 04/16/2024. 3. Prior cholecystectomy. 4. No GI tract obstruction.
== END 2025-02-09 15:28 | disposition home or self-care (01) ==
PROVIDERS: PCP Nurse Practitioner Family; Visit Provider Surgery
DX: K45.8 Other specified abdominal hernia without obstruction or gangrene (principal); K42.9 Umbilical hernia without obstruction or gangrene; R93.5 Abnormal findings on diagnostic imaging of other abdominal regions, including retroperitoneum; Z90.49 Acquired absence of other specified parts of digestive tract; K44.9 Diaphragmatic hernia without obstruction or gangrene; N28.89 Other specified disorders of kidney and ureter; R93.422 Abnormal radiologic findings on diagnostic imaging of left kidney
CPT/HCPCS: 74177; 82565; 84520

== ENCOUNTER → 2025-03-04 14:40 | Outpatient (BNVA) | payer MEDICARE, SELFPAY | PROVIDERS: PCP Nurse Practitioner Family; Visit Provider Surgery | DX: Z98.890 Other specified postprocedural states (principal) | CPT/HCPCS: 99214 ==